=== PATIENT | female | born 1940 | race American Indian/Alaskan Native ===

== ENCOUNTER 2016-08-19 09:43 | Inpatient (IN) | payer MEDICARE ==
[2016-08-19] MEDS ORDERED: NACL 0.9% 1000 ML 1,000 ML IV ONE (11:12)
--- NOTE | 2016-08-19 11:26 | Emergency Department Report ---
ED Altered Mental Status HPI - General Chief Complaint: Altered Mental Status Stated Complaint: POSS UTI Time Seen by Provider: 08/19/16 11:11 Source: family Mode of arrival: Wheelchair Limitations: Physical Limitation - History of Present Illness Initial Comments: 76-year-old female presents to the emergency Department with family for evaluation of altered mental status. Per report, the patient has a history of recurrent urinary tract infections. For the past 2 weeks, the patient has exhibited decreased appetite and generalized weakness. Per family, these are the symptoms she has when she developed a urinary tract infection. For the past one week, the patient has become increasingly lethargic with decreased responsiveness. There are no other complaints. MD Complaint: altered mental status -: Gradual, week(s) (2) Severity: severe Consistency of Symptoms: constant - Related Data Home Medications Medication Instructions Recorded Confirmed Last Taken Atenolol [Tenormin] 50 mg PO DAILY 05/06/13 07/12/15 11/06/13 glipiZIDE [Glucotrol] 10 mg PO BID 05/06/13 07/12/15 11/06/13 Aspirin [Aspirin BABY CHEW TAB] 81 mg PO QDAY 07/12/15 07/12/15 Unknown Previous Rx's Medication Instructions Recorded Last Taken Type Hydralazine HCl [Apresoline TAB] 50 mg PO Q8HR #90 tab 07/25/15 Unknown Rx Lisinopril [Zestril TAB] 10 mg PO BID #60 tablet 07/25/15 Unknown Rx Allergies Allergy/AdvReac Type Severity Reaction Status Date / Time No Known Allergies Allergy Verified 11/11/14 12:57 ED Review of Systems ROS: Stated complaint: POSS UTI Other details as noted in HPI Comment: Unobtainable due to pts medical conditions ED Past Medical Hx - Past Medical History Previous Medical History?: Yes Hx Hypertension: Yes Hx CVA: Yes (dysarthria, right hemiparesis) Hx Heart Attack/AMI: No Hx Congestive Heart Failure: No Hx Diabetes: Yes (diet controlled) Hx Deep Vein Thrombosis: No Hx Pulmonary Embolism: No Hx Liver Disease: No Hx Renal Disease: No Hx Sickle Cell Disease: No Hx Arthritis: No Hx Seizures: No Hx Kidney Stones: No Hx Asthma: No Hx COPD: No Hx Tuberculosis: No Hx Dementia: No Hx HIV: No Additional medical history: Wheelchair and bedbound - Surgical History Hx Coronary Stent: No Hx Open Heart Surgery: No Hx Pacemaker: No Hx Internal Defibrillator: No Hx Cholecystectomy: Yes Hx Appendectomy: No Hx Breast Surgery: No Additional Surgical History: , hysterectomy - Family History Family history: no significant - Social History Smoking Status: Never Smoker Substance Use Type: None - Medications Home Medications: Home Medications Medication Instructions Recorded Confirmed Last Taken Type Atenolol [Tenormin] 50 mg PO DAILY 05/06/13 07/12/15 11/06/13 History glipiZIDE [Glucotrol] 10 mg PO BID 05/06/13 07/12/15 11/06/13 History Aspirin [Aspirin BABY CHEW TAB] 81 mg PO QDAY 07/12/15 07/12/15 Unknown History Hydralazine HCl [Apresoline TAB] 50 mg PO Q8HR #90 tab 07/25/15 Unknown Rx Lisinopril [Zestril TAB] 10 mg PO BID #60 tablet 07/25/15 Unknown Rx ED Physical Exam - General Limitations: Physical Limitation General appearance: lethargic - Head Head exam: Present: atraumatic, normocephalic - Eye Eye exam: Present: normal appearance, PERRL, EOMI - ENT ENT exam: Present: normal exam, normal orophraynx, mucous membranes moist - Neck Neck exam: Present: normal inspection, full ROM. Absent: tenderness - Respiratory Respiratory exam: Present: normal lung sounds bilaterally. Absent: respiratory distress - Cardiovascular Cardiovascular Exam: Present: regular rate, normal rhythm, normal heart sounds - GI/Abdominal GI/Abdominal exam: Present: soft, normal bowel sounds. Absent: distended, tenderness - Extremities Exam Extremities exam: Present: normal inspection, full ROM. Absent: tenderness - Back Exam Back exam: Present: normal inspection, full ROM. Absent: tenderness - Neurological Exam Neurological exam: Present: other (GCS 9 (E4, V1, M4). Right sided hemiparesis with right arm contracture, at baseline per family) - Skin Skin exam: Present: warm, dry ED Course Vital Signs 08/19/16 08/19/16 08/19/16 10:49 11:12 12:01 Temperature 98.1 F Pulse Rate 97 H 94 H Respiratory 14 Rate Blood Pressure 75/52 131/85 O2 Sat by Pulse 80 L 85 Oximetry 08/19/16 13:00 Temperature Pulse Rate 94 H Respiratory 9 L Rate Blood Pressure 135/114 O2 Sat by Pulse 62 L Oximetry - Reevaluation(s) Reevaluation #1: 08/19/16 13:55 Hamm catheter was placed by nursing staff with no urine return. Lab is unable to obtain blood and nursing unable to obtain IV access. A left femoral triple- lumen catheter was placed by me. See associated procedure note. Reevaluation #2: 08/19/16 14:32 Lab and imaging results reviewed and discussed with the family. Patient still has made no urine. IV fluids are being administered. I have spoken with the hospitalist, who will admit. - Central Line Placement Left Femoral Consent Obtained: written consent Time Out Performed: Yes Patient Placed on Monitor/Pulse Ox: Yes Prep: mask, gown, gloves Central Line Prep: Chlorhexidine scrub, sterile drapes applied Local Anesthesia Used: Lidocaine 1% Amount of Anesthesia Used (mls): 2 Ultrasound Used for Placement: Yes Central Line Lumen Inserted: triple Bloods Obtained for Lab: No Central Line Position: good blood return, all ports aspirated, flus, sutured in place with nyl Dressing Applied: Tegaderm Patient Tolerated Procedure: well Complications: none - Lab Data Result diagrams: 08/19/16 11:12 08/19/16 11:13 Lab Results 08/19/16 08/19/16 08/19/16 Range/Units 11:12 11:12 11:13 WBC 11.7 H (4.5-11.0) K/mm3 RBC 3.61 L (3.65-5.03) M/mm3 Hgb 11.3 (10.1-14.3) gm/dl Hct 34.9 (30.3-42.9) % MCV 97 (79-97) fl MCH 31 (28-32) pg MCHC 32 (30-34) % RDW 15.6 H (13.2-15.2) % Plt Count 238 (140-440) K/mm3 Lymph % (Auto) 13.4 (13.4-35.0) % [place] % (Auto) 7.7 H (0.0-7.3) % Eos % (Auto) 0.3 (0.0-4.3) % Baso % (Auto) 0.6 (0.0-1.8) % Lymph # 1.6 (1.2-5.4) K/mm3 [place] # 0.9 H (0.0-0.8) K/mm3 Eos # 0.0 (0.0-0.4) K/mm3 Baso # 0.1 (0.0-0.1) K/mm3 Seg Neutrophils % 78.0 H (40.0-70.0) % Seg Neutrophils # 9.2 H (1.8-7.7) K/mm3 Sodium 142 (137-145) mmol/L Potassium 4.2 (3.6-5.0) mmol/L Chloride 104.6 (98-107) mmol/L Carbon Dioxide 26 (22-30) mmol/L Anion Gap 16 mmol/L BUN 31 H (7-17) mg/dL Creatinine 1.4 H (0.7-1.2) mg/dL Estimated GFR 44 ml/min BUN/Creatinine Ratio 22.14 % Glucose 156 H (65-100) mg/dL POC Glucose 141 H (70-105) Lactic Acid (0.7-2.0) mmol/L Calcium 10.5 H (8.4-10.2) mg/dL Total Bilirubin 0.7 (0.1-1.2) mg/dL AST 57 H (5-40) units/L ALT 37 (7-56) units/L Alkaline Phosphatase 189 H (35-129) units/L Troponin T 0.214 H* (0.00-0.029) ng/mL Total Protein 7.1 (6.3-8.2) g/dL Albumin 2.8 L (3.9-5) g/dL Albumin/Globulin Ratio 0.7 % Triglycerides 95 (2-149) mg/dL Cholesterol 145 (50-199) mg/dL LDL Cholesterol Direct 90 (50-130) mg/dL HDL Cholesterol 36 L (40-59) mg/dL Cholesterol/HDL Ratio 4.02 % /30/16 Range/Units 13:25 WBC (4.5-11.0) K/mm3 RBC (3.65-5.03) M/mm3 Hgb (10.1-14.3) gm/dl Hct (30.3-42.9) % MCV (79-97) fl MCH (28-32) pg MCHC (30-34) % RDW (13.2-15.2) % Plt Count (140-440) K/mm3 Lymph % (Auto) (13.4-35.0) % [place] % (Auto) (0.0-7.3) % Eos % (Auto) (0.0-4.3) % Baso % (Auto) (0.0-1.8) % Lymph # (1.2-5.4) K/mm3 [place] # (0.0-0.8) K/mm3 Eos # (0.0-0.4) K/mm3 Baso # (0.0-0.1) K/mm3 Seg Neutrophils % (40.0-70.0) % Seg Neutrophils # (1.8-7.7) K/mm3 Sodium (137-145) mmol/L Potassium (3.6-5.0) mmol/L Chloride (98-107) mmol/L Carbon Dioxide (22-30) mmol/L Anion Gap mmol/L BUN (7-17) mg/dL Creatinine (0.7-1.2) mg/dL Estimated GFR ml/min BUN/Creatinine Ratio % Glucose (65-100) mg/dL POC Glucose (70-105) Lactic Acid 1.7 (0.7-2.0) mmol/L Calcium (8.4-10.2) mg/dL Total Bilirubin (0.1-1.2) mg/dL AST (5-40) units/L ALT (7-56) units/L Alkaline Phosphatase (35-129) units/L Troponin T (0.00-0.029) ng/mL Total Protein (6.3-8.2) g/dL Albumin (3.9-5) g/dL Albumin/Globulin Ratio % Triglycerides (2-149) mg/dL Cholesterol (50-199) mg/dL LDL Cholesterol Direct (50-130) mg/dL HDL Cholesterol (40-59) mg/dL Cholesterol/HDL Ratio % - EKG Data -: EKG Interpreted by Ms EKG shows normal: sinus rhythm, intervals, QRS complexes Rate: normal When compared to previous EKG there are: previous EKG unavailable Interpretation: nonspecific ST-T wave ana, other (left axis deviation) - Radiology Data Radiology results: report reviewed, image reviewed Chest x-ray shows no acute cardiopulmonary abnormality. - Differential Diagnosis sepsis, UTI, pneumonia, dehydration, electrolyte abnormality Critical care attestation.: If time is entered above; I have spent that time in minutes in the direct care of this critically ill patient, excluding procedure time. ED Disposition Clinical Impression: Acute renal failure due to tubular necrosis, Elevated troponin I level Disposition: OP ADMITTED IP TO THIS HOSP Is pt being admited?: Yes Condition: Stable Time of Disposition: 14:33
--- NOTE | 2016-08-19 13:01 | XRay Report ---
Portable chest: The cardiac contour isn't at least borderline in size and the aorta is tortuous. The lungs are clear. No infiltrate or nodule identified. There is a right subcapital humerus fracture of indeterminate age. Although there are technical differences the cardiopulmonary findings are unchanged from June 2015. Impression: No acute findings suspected.
--- NOTE | 2016-08-19 13:21 | Admit Criteria Form ---
Admission Criteria Documentation: MENTAL STATUS CHANGE Clinical Indications for Inpatient Care (Place 'X' for any and all applicable criteria): Ongoing inpatient care may be needed for ANY ONE of the following(1)(2)(3)(5)(6) : [ X]I. Suspected serious etiology (eg, medical disorder, ENTERTAINER & COMIC event) of mental status change [ ]II. Danger to self or others not manageable at lower level of care [ ]III. Grave disability (eg, inability to perform self care necessary at lower level of care) [ ]IV. Agitation or inappropriate behavior interfering with care for primary condition (eg, attempting to discontinue lines or drains prematurely, unable to cooperate with respiratory care) [ ]V. Delirium [A] [D][E] as described by ANY ONE of the following(26): [ ]a) Delirium due to alcohol or sedative [F] withdrawal [ ]b) Delirium of uncertain etiology that has not responded to appropriate empiric treatment [ ]c) Delirium that prevents performance of a life-sustaining function (eg, feeding or hydrating oneself) [ X]. General contraindications and/or Inappropriate clinical situations for Observational Care in patients with Mental Status Change, when ANY ONE of the following is required: [ X]a) Prediction of prolongation of LOS based on ANY ONE of the following may be considered as a contraindication for observational care 2, 3, 4, 5, 6, 7, 8, 9, 10, 11 [ X]i) Age > 65 yrs. [ ]ii) Patient arriving by ambulance [ ]iii) Patient with high acuity [ ]iv) Patient requiring vital sign monitoring [ ]v) Patient on IV medication [ ]b) Systolic blood pressures 180mmHg 3,12 [ ]c) Patient with altered mental status including delirium and other alteration of consciousness, (3) [ ]d) Patient whose discharge disposition will be to a longterm home or rehabilitation home should not be managed in Emergency Department Observation Unit. CMS rule requires 3 days hospital stay before such placement.3,13 [ ]e) Patient with failure to thrive due to broad array of etiologies 3,16,17 [ ]f) Inability to ambulate 3,14 Extended stay beyond goal length of stay for the primary condition may be needed until ALL of the following are present(3)(5): [ ]a) Underlying medical etiology of mental status change is absent, or has been established and adequately treated [ ]b) Danger to self or others is absent or manageable at lower level of care. [ ]c) Behavior crisis management, including physical or chemical restraints, is not required or available at lower level of car [ ]d) Substance or alcohol withdrawal is absent or manageable at lower level of care. [ ]e) Behavioral symptoms (eg, agitation, somnolence, inappropriate behavior) are absent, or are manageable at lower level of care. The original [facility] [employer] content created by [facility] has been revised. The portions of the content which have been revised are identified through the use of italic text or in bold, and [facility] has neither reviewed nor approved the modified material. All other unmodified content is copyright [facility]. Please see references footnoted in the original [facility] edition 2016 Admission Criteria Met: Yes
[2016-08-19 13:47] LABS: Basophils % (Auto) 0.6 % (0.0-1.8); Eosinophils % (Auto) 0.3 % (0.0-4.3); Hematocrit 34.9 % (30.3-42.9); Hemoglobin 11.3 gm/dl (10.1-14.3); Mean Corpuscular HGB Conc 32 % (30-34); Mean Corpuscular Hemoglobin 31 pg (28-32); Mean Corpuscular Volume 97 fl (79-97); Platelet Count 238 K/mm3 (140-440); Red Blood Count 3.61 M/mm3 (3.65-5.03); Red Cell Distribution Width 15.6 % (13.2-15.2); White Blood Count 11.7 K/mm3 (4.5-11.0)
[2016-08-19 14:11] LABS: Albumin 2.8 g/dL (3.9-5); Albumin/Globulin Ratio 0.7 %; BUN/Creatinine Ratio 22.14; Bilirubin,Total 0.7 mg/dL (0.1-1.2); Calcium 10.5 mg/dL (8.4-10.2); Chloride 104.6 mmol/L (98-107); Potassium 4.2 mmol/L (3.6-5.0); Total Protein 7.1 g/dL (6.3-8.2)
[2016-08-19] MEDS ORDERED: NACL 0.9% 1000 ML 1,000 ML IV SCH (15:00)
--- NOTE | 2016-08-19 17:32 | Event Note ---
Date: 08/19/16 See H/p in reports AMS Anuria Acute renal failure HTN T2dm Poor po intake IV fluids +Megace
[2016-08-19] MEDS ORDERED: DULCOLAX PR PRN (17:41)
[2016-08-19] MEDS ORDERED: DILAUDID IV PRN (17:41)
[2016-08-19] MEDS ORDERED: TYLENOL PO PRN (17:41)
[2016-08-19] MEDS ORDERED: MILK OF MAGNESIA PO PRN (17:41)
[2016-08-19] MEDS ORDERED: ZOFRAN IV PRN (17:41)
[2016-08-19] MEDS ORDERED: NON-FORMULARY (Omeprazole Magnesium [Prilosec Otc] 20 MG) PO SCH (17:45)
--- NOTE | 2016-08-19 17:53 | Consultation ---
History of Present Illness - Reason for Consult Consult date: 08/19/16 acute renal failure - History of Present Illness Patient is a 76 yo AAF with pmh significant for Hypertension and CVA s/p right sided hemiplegia who was brought into the ED by the family for evaluation of altered mental status. Unable to obtain any history from patient and information obtained from the family members at the bedside. Patient had about 2 episodes of urinary tract infection over the past 2 months. She was also treated for Acute Kidney Injury during the previous admission. For the past 2 weeks, the patient has exhibited decreased appetite, poor PO intake and confusion. Patient is also increasingly lethargic and not responding well. No h/o N, V, D, fever, cp, sob, leg swelling or rash. Past History Past Medical History: hypertension, stroke Social history: lives with family Medications and Allergies Allergies Allergy/AdvReac Type Severity Reaction Status Date / Time ceftriaxone sodium Allergy Unknown Verified 08/19/16 20:20 [From Rocephin] zolpidem tartrate Allergy Unknown Verified 08/19/16 20:20 [From Ambien] Home Medications Medication Instructions Recorded Confirmed Last Taken Type Aspirin [Aspirin BABY CHEW TAB] 81 mg PO QDAY 07/12/15 08/19/16 Unknown History Lisinopril [Zestril TAB] 10 mg PO BID #60 tablet 07/25/15 08/19/16 Unknown Rx AtorvaSTATin [Lipitor] 20 mg PO QHS 08/19/16 08/19/16 Unknown History Carvedilol [Coreg] 3.125 mg PO BID 08/19/16 08/19/16 Unknown History Furosemide [Lasix] 20 mg PO QDAY 08/19/16 08/19/16 Unknown History Omeprazole Magnesium [PriLOSEC Otc] 20 mg PO QDAY 08/19/16 08/19/16 Unknown History Active Meds: Active Medications Acetaminophen (Tylenol) 650 mg PO Q4H PRN PRN Reason: Pain MILD(1-3)/Fever >100.5/URBAN Bisacodyl (Dulcolax) 10 mg AL QDAY PRN PRN Reason: Constipation unrelieved by MOM Carvedilol (Coreg) 3.125 mg PO BID CHOCO Hydromorphone HCl (Dilaudid) 0.5 mg IV Q3H PRN PRN Reason: Pain , Severe (7-10) Sodium Chloride (Nacl 0.9% 1000 Ml) 1,000 mls @ 125 mls/hr IV DIRECT CHOCO Dextrose/Sodium Chloride (D5ns) 1,000 mls @ 100 mls/hr IV DIRECT CHOCO Magnesium Hydroxide (Milk Of Magnesia) 30 ml PO Q4H PRN PRN Reason: Constipation Megestrol Acetate (Megace) 40 mg PO BID HCOCO Miscellaneous Medication (Omeprazole Magnesium [Prilosec Otc]) 20 mg PO QDAY CHOCO Ondansetron HCl (Zofran) 4 mg IV Q8H PRN PRN Reason: N/V unrelieved by Reglan Review of Systems ROS unobtainable: due to mental status Exam - Vital Signs Vital signs: Vital Signs Temp Pulse BP Pulse Ox 98.1 F 97 H 75/52 80 L 08/19/16 10:49 08/19/16 10:49 08/19/16 10:49 08/19/16 10:49 - General Appearance General appearance: frail, other (no distress, not following any command) EENT: PERRL, mucous membranes dry Neck: Present: neck supple Heart: regular, S1S2, no murmurs Gastrointestinal: Present: normoactive bowel sounds. Absent: tenderness, distended, guarding Integumentary: no rash Neurologic: other (non-verbal) Musculoskeletal: Present: other (right UE contractures noted, atrophy of muscles noted) Psychiatric: other (not cooperative) Results - Lab Results 08/19/16 11:12 08/19/16 11:13 Most recent lab results Calcium 10.5 mg/dL (8.4-10.2) H 08/19/16 11:13 Assessment and Plan - Patient Problems (1) FRAN (acute kidney injury) Current Visit: Yes Status: Acute Plan to address problem: Likely hemodynamically mediated FRAN in the setting of volume depletion. Continue IV fluids. Monitor renal function. Urine studies pending. (2) Altered mental status Current Visit: Yes Status: Acute Qualifiers: Altered mental status type: disorientation Qualified Code(s): R41.0 - Disorientation, unspecified (3) Extracellular volume depletion Current Visit: Yes Status: Acute
[2016-08-19] MEDS ORDERED: PROTONIX PO ONE (19:00)
[2016-08-19] MEDS: COREG PO SCH (22:22)
[2016-08-19] MEDS: MEGACE PO SCH (22:23)
[2016-08-19] MEDS: D5NS 1,000 ML IV SCH (22:23)
--- NOTE | 2016-08-19 23:49 | History and Physical Report ---
CHIEF COMPLAINT: Altered sensorium. HISTORY OF PRESENT ILLNESS: A 76-year-old brought to the Emergency Department because of altered mental status. The patient has a history of recurrent urinary tract infections. The patient has decreased appetite and generalized weakness. Also, the patient is not passing any urine. The patient has been lethargic for the past one week. Increasing loss of appetite. Also, loss of fluid intake. No urine for the last 12 to 15 hours. Atenolol 50 mg p.o. daily, glipizide 10 mg twice a day, and aspirin 81 mg p.o. daily. PAST MEDICAL HISTORY: As mentioned, significant for hypertension, CVA with dysarthria and right hemiparesis. Diabetes. PAST SURGICAL HISTORY: and hysterectomy. SOCIAL HISTORY: Does not smoke. Lives with family. FAMILY HISTORY: Hypertension. CURRENT MEDICATIONS: Atenolol 50 mg daily, glipizide 10 mg twice a day, aspirin 81 mg p.o. daily, hydralazine 50 mg p.o. q.8 h., and Zestril 10 mg twice a day. REVIEW OF SYSTEMS: Significant for altered sensorium, confused, decreased p.o. intake, decreased fluid intake. No shortness of breath. No chest pain. No urine output for the past 12-15 hours. Otherwise, review of systems is essentially negative. PHYSICAL EXAMINATION: GENERAL: Elderly female, lying in bed. Family at bedside. VITAL SIGNS: Blood pressure is 155/98, repeat is 138/86; temperature is 98; pulse is 88; and respiratory rate is 11. HEENT: Unremarkable. Pupils are equal and reactive. NECK: Supple, no lymphadenopathy, no thyromegaly. LUNGS: Clear to auscultation and percussion. Good air entry. CARDIOVASCULAR: S1, S2 heard. No gallop, no murmur, no rub. Apical impulse in left fifth intercostal space and midclavicular line. ABDOMEN: Soft and benign. No hepatosplenomegaly. No guarding, no rigidity. Hernial orifices are normal. EXTREMITIES: Good pedal pulses. CENTRAL NERVOUS SYSTEM: Alert but not oriented. SKIN: Normal. LABORATORY DATA: White count is 11,700, H and H are 11.3 and 34.9, and platelet count is 238,000. Sodium is 142, potassium is 4.2, BUN and creatinine are 31 and 1.4. AST and ALT are 57 and 37. Troponin is 0.214. EKG shows normal sinus rhythm, normal intervals, normal QRS complexes. X-ray shows no acute cardiopulmonary abnormality. ASSESSMENT AND PLAN: 1. Acute renal failure secondary to decreased p.o. intake, decreased fluid intake. IV fluids for the time being. Nephrology consulted. Dr. Boland consulted. Anuria. IV fluids for the time being. 2. Hypertension. We will continue hydralazine, but we will hold lisinopril 3. Type 2 diabetes mellitus. We will hold the glipizide because of poor p.o. intake. We will do coverage. 4. Altered sensorium secondary to possible cerebrovascular accident versus infection. IV fluids and IV Rocephin for the time being. Stroke workup if necessary. 5. Deep venous thrombosis prophylaxis, Lovenox 40 mg subcutaneous daily. JOB# [id number] VSM/NTS
[2016-08-20] MEDS: PROTONIX PO SCH (09:19)
[2016-08-20] MEDS: COREG PO SCH ×2 (09:19→23:06)
[2016-08-20] MEDS: NOVOLOG SUB-Q SCH ×3 (09:20→16:30)
[2016-08-20] MEDS: MEGACE PO SCH ×2 (09:20→23:07)
[2016-08-20 10:46] LABS: Basophils % (Auto) 0.6 % (0.0-1.8); Eosinophils % (Auto) 0.5 % (0.0-4.3); Hematocrit 30.7 % (30.3-42.9); Mean Corpuscular HGB Conc 33 % (30-34); Mean Corpuscular Hemoglobin 32 pg (28-32); Mean Corpuscular Volume 97 fl (79-97); Platelet Count 181 K/mm3 (140-440); Red Blood Count 3.18 M/mm3 (3.65-5.03); Red Cell Distribution Width 15.5 % (13.2-15.2); White Blood Count 11.7 K/mm3 (4.5-11.0)
--- NOTE | 2016-08-20 11:04 | Progress Note ---
Assessment and Plan Assessment and plan: 1. NSTEMI continue Tele, cycle troponins, cardiology consult 2. FRAN- suspected vasomotor nephropathy -continue IVF, she is yet to make urine, will obtain CT scan to r/o obstructive uropathy 3. HTN urgency add hydralazine PRN 4. AMS likely metabolic encephalopathy, will continue with stroke w/o Obtain MRI brain , fup UA and CXR to r/o UTI 5. malnutrition obtain Dietitician consult History Interval history: continues to be altered, opens eyes but not obeying commands, not speaking Hospitalist Physical - Physical exam Narrative exam: General: Patient appears well in no distress HEENT: MMM, EOMI cardiac: S1-S2 heard lungs: clear to auscultation, abdomen: soft, nontender, nondistended bowel sounds positive extremities: no edema clubbing or cyanosis Skin: no rash or lesion Neuro: opens eyes, , non verbal, not obeying commands - Constitutional Vitals: Temp Pulse Resp BP Pulse Ox 99.9 F H 92 H 18 187/87 100 08/20/16 08:15 08/20/16 09:19 08/20/16 08:15 08/20/16 09:19 08/20/16 08:15 Results - Labs CBC & Chem 7: 08/20/16 10:30 08/20/16 10:30 Labs: Laboratory Last Values WBC 11.7 K/mm3 (4.5-11.0) H 08/20/16 10:30 RBC 3.18 M/mm3 (3.65-5.03) L 08/20/16 10:30 Hgb 10.0 gm/dl (10.1-14.3) L 08/20/16 10:30 Hct 30.7 % (30.3-42.9) 08/20/16 10:30 MCV 97 fl (79-97) 08/20/16 10:30 MCH 32 pg (28-32) 08/20/16 10:30 MCHC 33 % (30-34) 08/20/16 10:30 RDW 15.5 % (13.2-15.2) H 08/20/16 10:30 Plt Count 181 K/mm3 (140-440) 08/20/16 10:30 Lymph % (Auto) 10.2 % (13.4-35.0) L 08/20/16 10:30 [place] % (Auto) 9.1 % (0.0-7.3) H 08/20/16 10:30 Eos % (Auto) 0.5 % (0.0-4.3) 08/20/16 10:30 Baso % (Auto) 0.6 % (0.0-1.8) 08/20/16 10:30 Lymph # 1.2 K/mm3 (1.2-5.4) 08/20/16 10:30 [place] # 1.1 K/mm3 (0.0-0.8) H 08/20/16 10:30 Eos # 0.1 K/mm3 (0.0-0.4) 08/20/16 10:30 Baso # 0.1 K/mm3 (0.0-0.1) 08/20/16 10:30 Seg Neutrophils % 79.6 % (40.0-70.0) H 08/20/16 10:30 Seg Neutrophils # 9.3 K/mm3 (1.8-7.7) H 08/20/16 10:30 Sodium 142 mmol/L (137-145) 08/19/16 11:13 Potassium 4.2 mmol/L (3.6-5.0) 08/19/16 11:13 Chloride 104.6 mmol/L (98-107) 08/19/16 11:13 Carbon Dioxide 26 mmol/L (22-30) 08/19/16 11:13 Anion Gap 16 mmol/L 08/19/16 11:13 BUN 31 mg/dL (7-17) H 08/19/16 11:13 Creatinine 1.4 mg/dL (0.7-1.2) H 08/19/16 11:13 Estimated GFR 44 ml/min 08/19/16 11:13 BUN/Creatinine Ratio 22.14 % 08/19/16 11:13 Glucose 156 mg/dL (65-100) H 08/19/16 11:13 POC Glucose 141 (70-105) H 08/19/16 11:12 Lactic Acid 1.6 mmol/L (0.7-2.0) 08/19/16 14:00 Calcium 10.5 mg/dL (8.4-10.2) H 08/19/16 11:13 Total Bilirubin 0.7 mg/dL (0.1-1.2) 08/19/16 11:13 AST 57 units/L (5-40) H 08/19/16 11:13 ALT 37 units/L (7-56) 08/19/16 11:13 Alkaline Phosphatase 189 units/L (35-129) H 08/19/16 11:13 Troponin T 0.214 ng/mL (0.00-0.029) H* 08/19/16 11:13 Total Protein 7.1 g/dL (6.3-8.2) 08/19/16 11:13 Albumin 2.8 g/dL (3.9-5) L 08/19/16 11:13 Albumin/Globulin Ratio 0.7 % 08/19/16 11:13 Triglycerides 95 mg/dL (2-149) 08/19/16 11:13 Cholesterol 145 mg/dL (50-199) 08/19/16 11:13 LDL Cholesterol Direct 90 mg/dL (50-130) 08/19/16 11:13 HDL Cholesterol 36 mg/dL (40-59) L 08/19/16 11:13 Cholesterol/HDL Ratio 4.02 % 08/19/16 11:13 - Imaging and Cardiology Chest x-ray: image reviewed (no acute process)
[2016-08-20 11:13] LABS: Albumin 2.7 g/dL (3.9-5); Albumin/Globulin Ratio 0.7 %; Bilirubin,Total 0.8 mg/dL (0.1-1.2); Calcium 9.6 mg/dL (8.4-10.2); Chloride 109.7 mmol/L (98-107); Potassium 4.1 mmol/L (3.6-5.0); Total Protein 6.5 g/dL (6.3-8.2)
--- NOTE | 2016-08-20 12:12 | Progress Note ---
Assessment and Plan - Patient Problems (1) FRAN (acute kidney injury) Current Visit: Yes Status: Acute Plan to address problem: Likely hemodynamically mediated FRAN in the setting of volume depletion. Monitor renal function. Creatinine is about the same. Continue IV fluids. (2) Altered mental status Current Visit: Yes Status: Acute Qualifiers: Altered mental status type: disorientation Qualified Code(s): R41.0 - Disorientation, unspecified (3) Extracellular volume depletion Current Visit: Yes Status: Acute Subjective Date of service: 08/20/16 Interval history: No new symptoms. Objective - Vital Signs Vital signs: Vital Signs - 12hr 08/20/16 08/20/16 08/20/16 01:27 08:15 09:19 Temperature 99.9 F H Pulse Rate 92 H Pulse Rate [ 92 H Left Radial] Respiratory 22 18 Rate Blood Pressure 187/87 Blood Pressure 187/105 [Left Arm] O2 Sat by Pulse 97 100 Oximetry - General Appearance General appearance: well-developed, other (sleeping arousable, no distress) EENT: PERRL, mucous membranes moist, hearing intact Neck: supple Respiratory: Present: Clear to Ascultation Cardiology: regular, S1S2, no murmurs Gastrointestinal: normoactive bowel sounds, no tenderness, no distended, no guarding Integumentary: no rash, warm and dry Neurologic: other (not following any command) Musculoskeletal: other (no edema) - Lab 08/20/16 10:30 08/21/16 08:50 Most recent lab results Calcium 9.6 mg/dL (8.4-10.2) 08/20/16 10:30
--- NOTE | 2016-08-20 13:12 | Consultation ---
History of Present Illness Consult date: 08/20/16 Requesting physician: NISHANT SOLOMON Consult reason: elevated troponin History of present illness: This is a 76-year-old female who is bedbound with right-sided weakness since her stroke over 30 years ago who has a history of hypertension hyperlipidemia and diabetes history is obtained by the son was at the bedside who states that he has had decreased appetite and sleep since beginning of July patient is able to normally feet are cells and food is prepared by family members and is able to speak. Patient today is more nonverbal and as per the family patient was more verbal last month and has not had any history of chest pain or shortness of breath or arrhythmias or palpitations in the past. No melanoma no syncope no seizure-type activities Past History Past Medical History: diabetes, hypertension, hyperlipidemia, stroke (right- sided weakness and right arm contraction chronic) Past Surgical History: No surgical history Social history: no significant social history, lives with family Medications and Allergies Allergies Allergy/AdvReac Type Severity Reaction Status Date / Time ceftriaxone sodium Allergy Unknown Verified 08/19/16 20:20 [From Rocephin] zolpidem tartrate Allergy Unknown Verified 08/19/16 20:20 [From Ambien] Home Medications Medication Instructions Recorded Confirmed Last Taken Type Aspirin [Aspirin BABY CHEW TAB] 81 mg PO QDAY 07/12/15 08/19/16 Unknown History Lisinopril [Zestril TAB] 10 mg PO BID #60 tablet 07/25/15 08/19/16 Unknown Rx AtorvaSTATin [Lipitor] 20 mg PO QHS 08/19/16 08/19/16 Unknown History Carvedilol [Coreg] 3.125 mg PO BID 08/19/16 08/19/16 Unknown History Furosemide [Lasix] 20 mg PO QDAY 08/19/16 08/19/16 Unknown History Omeprazole Magnesium [PriLOSEC Otc] 20 mg PO QDAY 08/19/16 08/19/16 Unknown History Active Meds: Active Medications Acetaminophen (Tylenol) 650 mg PO Q4H PRN PRN Reason: Pain MILD(1-3)/Fever >100.5/URBAN Bisacodyl (Dulcolax) 10 mg LA QDAY PRN PRN Reason: Constipation unrelieved by MOM Carvedilol (Coreg) 3.125 mg PO BID CHOCO Last Admin: 08/20/16 09:19 Dose: 3.125 mg Hydralazine HCl (Apresoline) 10 mg IV Q4H PRN PRN Reason: BP >160/100 Hydromorphone HCl (Dilaudid) 0.5 mg IV Q3H PRN PRN Reason: Pain , Severe (7-10) Sodium Chloride (Nacl 0.9% 1000 Ml) 1,000 mls @ 125 mls/hr IV DIRECT CHOCO Dextrose/Sodium Chloride (D5ns) 1,000 mls @ 100 mls/hr IV DIRECT CHOCO Last Admin: 08/19/16 22:23 Dose: 100 mls/hr Insulin Aspart (Novolog) 0 units SUB-Q ACHS CHOCO PRN Reason: Protocol Last Admin: 08/20/16 12:59 Dose: Not Given Magnesium Hydroxide (Milk Of Magnesia) 30 ml PO Q4H PRN PRN Reason: Constipation Megestrol Acetate (Megace) 40 mg PO BID [facility] Last Admin: 08/20/16 09:20 Dose: 40 mg Ondansetron HCl (Zofran) 4 mg IV Q8H PRN PRN Reason: N/V unrelieved by Reglan Pantoprazole Sodium (Protonix) 20 mg PO QDAY [facility] Last Admin: 08/20/16 09:19 Dose: 20 mg Review of Systems All systems: negative (history from family) Physical Examination Vital Signs Temp Pulse BP Pulse Ox 98.1 F 97 H 75/52 80 L 08/19/16 10:49 08/19/16 10:49 08/19/16 10:49 08/19/16 10:49 General appearance: no acute distress HEENT: Positive: PERRL Neck: Positive: neck supple Cardiac: Positive: Reg Rate and Rhythm Lungs: Positive: clear to auscultation Neuro: Positive: Other (nonverbal right arm contraction) Abdomen: Positive: Soft Female genitourinary: deferred Skin: Positive: Clear Extremities: Present: normal. Absent: edema Results 08/20/16 10:30 08/20/16 10:30 Cardiac Enzymes 08/20/16 Range/Units 10:30 AST 49 H (5-40) units/L CBC 08/20/16 Range/Units 10:30 WBC 11.7 H (4.5-11.0) K/mm3 RBC 3.18 L (3.65-5.03) M/mm3 Hgb 10.0 L (10.1-14.3) gm/dl Hct 30.7 (30.3-42.9) % Plt Count 181 (140-440) K/mm3 Lymph # 1.2 (1.2-5.4) K/mm3 [place] # 1.1 H (0.0-0.8) K/mm3 Eos # 0.1 (0.0-0.4) K/mm3 Baso # 0.1 (0.0-0.1) K/mm3 Comprehensive Metabolic Panel 08/20/16 Range/Units 10:30 Sodium 144 (137-145) mmol/L Potassium 4.1 (3.6-5.0) mmol/L Chloride 109.7 H (98-107) mmol/L Carbon Dioxide 22 (22-30) mmol/L BUN 28 H (7-17) mg/dL Creatinine 1.4 H (0.7-1.2) mg/dL Glucose 140 H (65-100) mg/dL Calcium 9.6 (8.4-10.2) mg/dL AST 49 H (5-40) units/L ALT 31 (7-56) units/L Alkaline Phosphatase 154 H (35-129) units/L Total Protein 6.5 (6.3-8.2) g/dL Albumin 2.7 L (3.9-5) g/dL - Imaging and Cardiology Echo: pending EKG interpretations - Telemetry EKG Rhythm: Sinus Rhythm (normal sinus rhythm with nonspecific ST-T's) Assessment and Plan Altered mental status possible secondary to toxic encephalopathy Acute renal failure Non-ST elevation [place] type II History of stroke hypertension hyperlipidemia and diabetes Recommend echocardiogram for LV function agree with IV hydration for normalization of kidney function and will monitor patient's mental status and may consider ischemic workup if appropriate
--- NOTE | 2016-08-20 15:16 | Cat Scan Report ---
FINAL REPORT PROCEDURE: CT ABDOMEN PELVIS WO CON TECHNIQUE: Computerized axial tomography of the abdomen and pelvis was performed without intravenous contrast. This study is performed without intravascular contrast material and its sensitivity for abdominal and pelvic pathology, including neoplasms, inflammation, abscess, free fluid, thrombosis, arterial dissection and infarction, is reduced compared with a contrast enhanced study. HISTORY: FRAN, r/o urinary obstruction COMPARISON: 07/12/2015 FINDINGS: Visualized lower thorax: COPD with lower lung zone pleural thickening and minimal effusions with airspace process in the left lung base and lower lung zone atelectasis. Motion artifact. Small pericardial effusion. Liver: Heterogeneous appearing liver with low attenuated lesions seen primarily left lobe measuring up to 2.1 centimeters with smaller areas towards the left lobe medially and dome of liver. Spleen: Normal size and attenuation. Gallbladder and biliary system: Layering gallstones within the gallbladder. Pancreas: Normal. Adrenals: Normal. Kidneys: Persistent lobular kidneys with multiple low attenuated and medium attenuated lesions seen likely multi-cystic changes which can be confirmed by ultrasound. There is nonobstructive calculus seen within the right lower pole measuring 2 millimeters right mid kidney 1 millimeter right upper kidney 1 millimeter. Suspect severe chronic medical renal disease. Underlying solid renal mass or renal cell malignancy not excludable without IV contrast GI tract: No oral contrast. Suspect small hiatal hernia.. Moderate stool content with nonspecific bowel pattern. Normal caliber appendix. Fecal bulk in the rectal vault Lymph nodes and mesentery: Mild stranding in the presacral posterior pelvic area. Vasculature: Atherosclerosis. Bladder: Nondistended bladder with small amount of air within the bladder and also within the wall of the bladder consistent with emphysematous cystitis. Reproductive organs: Apparent surgical absence of the uterus. Hamm balloon catheter appears to be within the right upper vaginal fornix and not within the bladder lumen per se. Low attenuated right adnexal cyst 3.0 x 2.0 centimeters Peritoneum: No free fluid. Musculoskeletal structures: Severe lumbar spine lordosis. Scoliosis with diffuse degenerative changes evident. Diffuse osteoporosis. Severe degenerative changes of the hips mild sacroiliitis. IMPRESSION: Hamm balloon catheter is in the right upper vaginal fornix. Advise removal at this time as warranted Emphysematous cystitis of unknown etiology. Consider traumatic or infectious etiologies Left lung base pneumonia Details above Followup advised as warranted Results called to nurse China Pearson RN 3 p.m. 08/20/2016
[2016-08-20] MEDS: D5NS 1,000 ML IV SCH (19:39)
[2016-08-21] MEDS: NOVOLOG SUB-Q SCH ×4 (01:00→23:38)
[2016-08-21] MEDS: D5NS 1,000 ML IV SCH ×2 (07:18→15:53)
[2016-08-21 09:12] LABS: Calcium 9.2 mg/dL (8.4-10.2); Chloride 114.3 mmol/L (98-107); Potassium 3.9 mmol/L (3.6-5.0)
--- NOTE | 2016-08-21 09:30 | Progress Note ---
Assessment and Plan Assessment and plan: 1. NSTEMI - continue Tele - cardiology consult appreciated - We'll get echo and stress test - Continue hydration 2. FRAN- suspected vasomotor nephropathy - We'll continue his IV fluid - Check input and out 3. HTN urgency add hydralazine PRN 4. AMS - likely metabolic encephalopathy - will continue with stroke w/o Obtain MRI brain 5. malnutrition obtain Dietitician consult Disposition Plan: continued inpatient care History Interval history: Patient is non verbal and very weak. Hospitalist Physical - Physical exam Narrative exam: Not in cardiopulmonary distress. Vital signs as documented. Head exam is unremarkable. No scleral icterus . Neck is without jugular venous distension, thyromegaly, or carotid bruits. Lungs are clear to auscultation. Cardiac exam reveals regular rate and Rhythm. First and second heart sounds normal. No murmurs, rubs or gallops. Abdominal exam reveals normal bowel sounds, no masses, no organomegaly and no aortic enlargement. Extremities are nonedematous and both femoral and pedal pulses are normal. 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 - Constitutional Vitals: Temp Pulse Resp BP Pulse Ox 99.2 F 89 16 111/64 97 08/21/16 07:22 08/21/16 08:57 08/21/16 07:22 08/21/16 07:22 08/21/16 07:22 General appearance: Present: no acute distress Results - Labs CBC & Chem 7: 08/20/16 10:30 08/21/16 08:50 Labs: Laboratory Last Values WBC 11.7 K/mm3 (4.5-11.0) H 08/20/16 10:30 RBC 3.18 M/mm3 (3.65-5.03) L 08/20/16 10:30 Hgb 10.0 gm/dl (10.1-14.3) L 08/20/16 10:30 Hct 30.7 % (30.3-42.9) 08/20/16 10:30 MCV 97 fl (79-97) 08/20/16 10:30 MCH 32 pg (28-32) 08/20/16 10:30 MCHC 33 % (30-34) 08/20/16 10:30 RDW 15.5 % (13.2-15.2) H 08/20/16 10:30 Plt Count 181 K/mm3 (140-440) 08/20/16 10:30 Lymph % (Auto) 10.2 % (13.4-35.0) L 08/20/16 10:30 [place] % (Auto) 9.1 % (0.0-7.3) H 08/20/16 10:30 Eos % (Auto) 0.5 % (0.0-4.3) 08/20/16 10:30 Baso % (Auto) 0.6 % (0.0-1.8) 08/20/16 10:30 Lymph # 1.2 K/mm3 (1.2-5.4) 08/20/16 10:30 [place] # 1.1 K/mm3 (0.0-0.8) H 08/20/16 10:30 Eos # 0.1 K/mm3 (0.0-0.4) 08/20/16 10:30 Baso # 0.1 K/mm3 (0.0-0.1) 08/20/16 10:30 Seg Neutrophils % 79.6 % (40.0-70.0) H 08/20/16 10:30 Seg Neutrophils # 9.3 K/mm3 (1.8-7.7) H 08/20/16 10:30 Sodium 144 mmol/L (137-145) 08/20/16 10:30 Potassium 4.1 mmol/L (3.6-5.0) 08/20/16 10:30 Chloride 109.7 mmol/L (98-107) H 08/20/16 10:30 Carbon Dioxide 22 mmol/L (22-30) 08/20/16 10:30 Anion Gap 16 mmol/L 08/20/16 10:30 BUN 28 mg/dL (7-17) H 08/20/16 10:30 Creatinine 1.4 mg/dL (0.7-1.2) H 08/20/16 10:30 Estimated GFR 53 ml/min 08/21/16 08:50 BUN/Creatinine Ratio 20.00 % 08/21/16 08:50 Glucose 140 mg/dL (65-100) H 08/20/16 10:30 POC Glucose 197 (70-105) H 08/21/16 06:13 Hemoglobin A1c 5.9 % (4-6) 08/20/16 10:30 Lactic Acid 1.6 mmol/L (0.7-2.0) 08/19/16 14:00 Calcium 9.6 mg/dL (8.4-10.2) 08/20/16 10:30 Total Bilirubin 0.8 mg/dL (0.1-1.2) 08/20/16 10:30 AST 49 units/L (5-40) H 08/20/16 10:30 ALT 31 units/L (7-56) 08/20/16 10:30 Alkaline Phosphatase 154 units/L (35-129) H 08/20/16 10:30 Total Creatine Kinase 63 units/L (30-135) 08/20/16 10:30 Troponin T 0.202 ng/mL (0.00-0.029) H* 08/20/16 17:18 Total Protein 6.5 g/dL (6.3-8.2) 08/20/16 10:30 Albumin 2.7 g/dL (3.9-5) L 08/20/16 10:30 Albumin/Globulin Ratio 0.7 % 08/20/16 10:30 Triglycerides 95 mg/dL (2-149) 08/19/16 11:13 Cholesterol 145 mg/dL (50-199) 08/19/16 11:13 LDL Cholesterol Direct 90 mg/dL (50-130) 08/19/16 11:13 HDL Cholesterol 36 mg/dL (40-59) L 08/19/16 11:13 Cholesterol/HDL Ratio 4.02 % 08/19/16 11:13
--- NOTE | 2016-08-21 10:05 | Echocardiography Report ---
Transthoracic Echocardiogram Indication: NSTEMI BP: 187/87 HR: 102 Conclusions *The study is technically limited due to poor acoustic windows. *Global left ventricular systolic function is at the lower limits of normal. *The estimated ejection fraction is 50-55%. *The right ventricular global systolic function is normal. *There is no evidence of aortic regurgitation. *There is trace of mitral regurgitation. *There is trace tricuspid regurgitation. *The right ventricular systolic pressure is calculated at 26 mmHg. *There is a moderate pleural effusion. *There is no pericardial effusion. Findings Procedure Info: The study quality is poor. The study is technically limited due to poor acoustic windows. The study is technically limited due to patient body habitus. The study was technically limited due to the patient's inability to lay in the left lateral decubitus position. Left Ventricle: The left ventricular chamber size is normal. There is no left ventricular hypertrophy. Global left ventricular systolic function is at the lower limits of normal. The estimated ejection fraction is 50-55%. Left Atrium: The left atrial chamber size is normal. Right Ventricle: The right ventricle is not well visualized. The right ventricular global systolic function is normal. No pacemaker wire is visualized in the right ventricle. Right Atrium: The right atrial cavity size is normal. No pacemaker wire is visualized in the right atrium. Aortic Valve: The aortic valve is trileaflet. There is no evidence of aortic valve thickening. There is no evidence of aortic regurgitation. There is no evidence of aortic stenosis. The peak instantaneous gradient of the aortic valve is 8 mmHg. The aortic valve area, by peak velocities, is calculated at 1.61 cm2. Mitral Valve: The mitral valve is not well visualized. There is trace of mitral regurgitation. There is no evidence of mitral stenosis. Tricuspid Valve: There is trace tricuspid regurgitation. The right ventricular systolic pressure is calculated at 26 mmHg. The right ventricular systolic pressure is estimated to be 25-30 mmHg. No pulmonary hypertension is noted. There is no tricuspid stenosis. Pulmonic Valve: The pulmonic valve is not well visualized. There is no evidence of pulmonic regurgitation. There is no pulmonic stenosis. Pericardium: There is no pericardial effusion. There is a moderate pleural effusion. Aorta: The aorta appears normal. Pulmonary Artery: The main pulmonary artery is not well visualized. Measurements Chambers 2D Name Value Normal Range IVSd (2D) 1.31 cm (0.6 - 1.1) LVPWd 0.94 cm - LVPWd (2D) 0.94 cm (0.6 - 1.1) IVS:LVPW ratio (2D) 1.39 ratio - LVIDd 2.9 cm - LVIDs 2.3 cm - LVIDd (2D) 2.9 cm (3.7 - 5.6) LVIDs (2D) 2.3 cm (2 - 3.8) LV FS (Teichholz) (2D) 20.7 % - LV FS (cube) (2D) 20.7 % - LV EF (2D) 43 % - EF Teichholz (2D) 43.8 % - LA dimension 2.4 cm - Ao root diameter (2D) 3.2 cm (2 - 3.7) LA dimension (AP) 2D 2.4 cm (1.9 - 4) LA:Ao ratio (2D) 0.75 ratio - Volumes/Mass Name Value Normal Range LA ESV SP 4CH (MOD) 28 ml - Diastolic/Systolic Function Name Value Normal Range MV E-wave Vmax 0.62 m/sec - MV deceleration time 261 msec - MV A-wave Vmax 1.05 m/sec - MV E:A ratio 0.6 ratio - LV septal e' Vmax 0.08 m/sec - LV lateral e' Vmax 0.08 m/sec - LV E:e' septal ratio 7.6 ratio - LV E:e' lateral ratio 8.1 ratio - Aortic Valve Name Value Normal Range AV Vmax 1.42 m/sec - AV peak gradient 8 mmHg - LVOT diameter 1.5 cm - LVOT Vmax 1.29 m/sec - LVOT peak gradient 7 mmHg - CYRIL (continuity Vmax) 1.61 cm2 - Tricuspid Valve Name Value Normal Range TR Vmax 2.38 m/sec - TR peak gradient 23 mmHg - RAP 3 mmHg - RVSP 26 mmHg - Pulmonic Valve/Qp:Qs Name Value Normal Range PV Vmax 1.2 m/sec - PV peak gradient 6 mmHg - MN end-diastolic Vmax 1.03 m/sec - PV acceleration time 99 msec -
[2016-08-21] MEDS: COREG PO SCH ×2 (10:59→23:39)
[2016-08-21] MEDS: PROTONIX PO SCH (11:00)
[2016-08-21] MEDS: MEGACE PO SCH ×2 (11:00→23:40)
--- NOTE | 2016-08-21 11:04 | Progress Note ---
Assessment and Plan Altered mental status possible secondary to toxic encephalopathy - improving to baseline Acute renal failure Non-ST elevation [place] type II History of stroke hypertension hyperlipidemia and diabetes Recommend renal function has improved patient is more awake alert discussing with family in view of the elevated echocardiogram with suggest repeat with Definity in a.m. and rule out ischemic burden in view of abnormal troponin Subjective Date of service: 08/21/16 Principal diagnosis: abnormal trop Interval history: pt is awake not verbal more alert Objective Vital Signs Temp Pulse Pulse Resp BP BP Pulse Ox 08/21/16 10:59 89 08/21/16 08:57 89 08/21/16 07:22 99.2 F 89 16 111/64 97 08/21/16 05:17 98.6 F 92 H 18 113/73 96 08/21/16 00:29 98.7 F 78 20 132/78 100 08/20/16 23:06 100 H 128/80 08/20/16 22:00 18 98 08/20/16 18:39 20 08/20/16 17:40 99.9 F H 101 H 18 120/78 99 - Physical Examination General: No Apparent Distress HEENT: Positive: PERRL Neck: Positive: neck supple Cardiac: Positive: Reg Rate and Rhythm Lungs: Positive: clear to auscultation Neuro: Positive: Other (awake non verbal) Abdomen: Positive: Soft Skin: Positive: Clear Extremities: Present: normal. Absent: edema - Labs and Meds Cardiac Enzymes 08/20/16 Range/Units 10:30 AST 49 H (5-40) units/L Comprehensive Metabolic Panel 08/20/16 08/21/16 Range/Units 10:30 08:50 Sodium 144 147 H (137-145) mmol/L Potassium 4.1 3.9 (3.6-5.0) mmol/L Chloride 109.7 H 114.3 H (98-107) mmol/L Carbon Dioxide 22 23 (22-30) mmol/L BUN 28 H 24 H (7-17) mg/dL Creatinine 1.4 H 1.2 (0.7-1.2) mg/dL Glucose 140 H 142 H (65-100) mg/dL Calcium 9.6 9.2 (8.4-10.2) mg/dL AST 49 H (5-40) units/L ALT 31 (7-56) units/L Alkaline Phosphatase 154 H (35-129) units/L Total Protein 6.5 (6.3-8.2) g/dL Albumin 2.7 L (3.9-5) g/dL - Imaging and Cardiology Echo: report reviewed (tds ef 50% no signficant regurtitations) - Telemetry EKG Rhythm: Sinus Rhythm (no vtach or afib noted)
--- NOTE | 2016-08-21 12:48 | Progress Note ---
Assessment and Plan - Patient Problems (1) FRAN (acute kidney injury) Current Visit: Yes Status: Acute Plan to address problem: Likely hemodynamically mediated FRAN in the setting of volume depletion. Monitor renal function. Creatinine is improving. Continue IV fluids. (2) Non-ST elevation (NSTEMI) myocardial infarction Current Visit: Yes Status: Acute Plan to address problem: Cards following. (3) Altered mental status Current Visit: Yes Status: Acute Qualifiers: Altered mental status type: disorientation Qualified Code(s): R41.0 - Disorientation, unspecified Plan to address problem: Improving. (4) Extracellular volume depletion Current Visit: Yes Status: Acute Plan to address problem: IV fluids. Subjective Date of service: 08/21/16 Principal diagnosis: abnormal trop Interval history: No new symptoms. Objective - Vital Signs Vital signs: Vital Signs - 12hr 08/21/16 08/21/16 08/21/16 05:17 07:22 08:57 Temperature 98.6 F 99.2 F Pulse Rate Pulse Rate [ 92 H 89 89 Left Radial] Respiratory 18 16 Rate Blood Pressure 113/73 111/64 [Left Arm] O2 Sat by Pulse 96 97 Oximetry 08/21/16 10:59 Temperature Pulse Rate 89 Pulse Rate [ Left Radial] Respiratory Rate Blood Pressure [Left Arm] O2 Sat by Pulse Oximetry - General Appearance General appearance: well-developed, other (no distress, alert) EENT: PERRL, mucous membranes moist, hearing intact Neck: supple Respiratory: Present: Clear to Ascultation Cardiology: regular, S1S2, no murmurs Gastrointestinal: normoactive bowel sounds, no tenderness, no distended, no guarding Integumentary: no rash, warm and dry Neurologic: other (non-verbal, not following any command, more alert) Musculoskeletal: other (no edema) - Lab 08/20/16 10:30 08/21/16 08:50 Most recent lab results Calcium 9.2 mg/dL (8.4-10.2) 08/21/16 08:50
[2016-08-21] MEDS: APRESOLINE IV PRN (21:08)
[2016-08-22] MEDS: D5NS 1,000 ML IV SCH (05:55)
[2016-08-22 06:36] LABS: Blood Urea Nitrogen 19 mg/dL (7-17); Calcium 9.2 mg/dL (8.4-10.2); Carbon Dioxide 21 mmol/L (22-30); Glucose 118 mg/dL (65-100); Magnesium 1.4 mg/dL (1.7-2.3); Phosphorous 1.6 mg/dL (2.5-4.5)
[2016-08-22 06:37] LABS: Chloride 114.2 mmol/L (98-107); Potassium 4.1 mmol/L (3.6-5.0); Sodium 144 mmol/L (137-145)
[2016-08-22 06:39] LABS: Anion Gap 13 mmol/L
[2016-08-22] MEDS: APRESOLINE IV PRN (06:49)
[2016-08-22] MEDS: NOVOLOG SUB-Q SCH ×4 (08:04→16:49)
[2016-08-22] MEDS ORDERED: LEXISCAN IV ONE (08:06)
--- NOTE | 2016-08-22 08:19 | Progress Note ---
Assessment and Plan - Patient Problems (1) FRAN (acute kidney injury) Current Visit: Yes Status: Acute Plan to address problem: Hemodynamically mediated FRAN. Renal function has improved. F/u with me next week. (2) Non-ST elevation (NSTEMI) myocardial infarction Current Visit: Yes Status: Acute (3) Altered mental status Current Visit: Yes Status: Acute Qualifiers: Altered mental status type: disorientation Qualified Code(s): R41.0 - Disorientation, unspecified Plan to address problem: MS is better. (4) Extracellular volume depletion Current Visit: Yes Status: Acute Plan to address problem: Treated with IV fluids. Subjective Date of service: 08/22/16 Principal diagnosis: abnormal trop Interval history: No new complaint. Objective - Vital Signs Vital signs: Vital Signs - 12hr 08/21/16 08/21/16 08/21/16 20:44 20:45 21:08 Temperature 99.8 F H Pulse Rate 88 Pulse Rate [ 88 Left Radial] Respiratory 20 Rate Blood Pressure 180/116 Blood Pressure 180/116 [Left Arm] O2 Sat by Pulse 98 95 Oximetry 08/21/16 08/22/16 08/22/16 23:39 00:00 05:05 Temperature 98.9 F 98.6 F Pulse Rate 93 H Pulse Rate [ 82 87 Left Radial] Respiratory 20 20 Rate Blood Pressure 155/89 Blood Pressure 155/100 185/117 [Left Arm] O2 Sat by Pulse 97 98 Oximetry 08/22/16 08/22/16 08/22/16 06:42 06:49 07:45 Temperature 99.1 F Pulse Rate 84 Pulse Rate [ 84 91 H Left Radial] Respiratory 18 Rate Blood Pressure 191/99 Blood Pressure 191/99 134/75 [Left Arm] O2 Sat by Pulse 96 Oximetry - General Appearance General appearance: well-developed, frail, other (no distress) EENT: PERRL, mucous membranes moist Neck: supple Respiratory: Present: Clear to Ascultation Cardiology: regular, S1S2, no murmurs Gastrointestinal: normoactive bowel sounds, no tenderness, no distended, no guarding Integumentary: no rash, warm and dry Neurologic: confused, disoriented, other (not following any command) Musculoskeletal: other (no edema) - Lab 08/20/16 10:30 08/22/16 05:38 Most recent lab results Calcium 9.2 mg/dL (8.4-10.2) 08/22/16 05:38 Phosphorus 1.6 mg/dL (2.5-4.5) L 08/22/16 05:38 Magnesium 1.4 mg/dL (1.7-2.3) L 08/22/16 05:38
--- NOTE | 2016-08-22 09:26 | Progress Note ---
Hospitalist Physical - Constitutional Vitals: Temp Pulse Resp BP Pulse Ox 99.1 F 91 H 18 134/75 96 08/22/16 07:45 08/22/16 07:45 08/22/16 07:45 08/22/16 07:45 08/22/16 07:45 General appearance: Present: no acute distress Results - Labs CBC & Chem 7: 08/20/16 10:30 08/22/16 05:38 Labs: Laboratory Last Values WBC 11.7 K/mm3 (4.5-11.0) H 08/20/16 10:30 RBC 3.18 M/mm3 (3.65-5.03) L 08/20/16 10:30 Hgb 10.0 gm/dl (10.1-14.3) L 08/20/16 10:30 Hct 30.7 % (30.3-42.9) 08/20/16 10:30 MCV 97 fl (79-97) 08/20/16 10:30 MCH 32 pg (28-32) 08/20/16 10:30 MCHC 33 % (30-34) 08/20/16 10:30 RDW 15.5 % (13.2-15.2) H 08/20/16 10:30 Plt Count 181 K/mm3 (140-440) 08/20/16 10:30 Lymph % (Auto) 10.2 % (13.4-35.0) L 08/20/16 10:30 [place] % (Auto) 9.1 % (0.0-7.3) H 08/20/16 10:30 Eos % (Auto) 0.5 % (0.0-4.3) 08/20/16 10:30 Baso % (Auto) 0.6 % (0.0-1.8) 08/20/16 10:30 Lymph # 1.2 K/mm3 (1.2-5.4) 08/20/16 10:30 [place] # 1.1 K/mm3 (0.0-0.8) H 08/20/16 10:30 Eos # 0.1 K/mm3 (0.0-0.4) 08/20/16 10:30 Baso # 0.1 K/mm3 (0.0-0.1) 08/20/16 10:30 Seg Neutrophils % 79.6 % (40.0-70.0) H 08/20/16 10:30 Seg Neutrophils # 9.3 K/mm3 (1.8-7.7) H 08/20/16 10:30 Sodium 144 mmol/L (137-145) 08/22/16 05:38 Potassium 4.1 mmol/L (3.6-5.0) 08/22/16 05:38 Chloride 114.2 mmol/L (98-107) H 08/22/16 05:38 Carbon Dioxide 21 mmol/L (22-30) L 08/22/16 05:38 Anion Gap 13 mmol/L 08/22/16 05:38 BUN 19 mg/dL (7-17) H 08/22/16 05:38 Creatinine 1.0 mg/dL (0.7-1.2) 08/22/16 05:38 Estimated GFR > 60 ml/min 08/22/16 05:38 BUN/Creatinine Ratio 19.00 % 08/22/16 05:38 Glucose 118 mg/dL (65-100) H 08/22/16 05:38 POC Glucose 131 (70-105) H 08/22/16 06:21 Hemoglobin A1c 5.9 % (4-6) 08/20/16 10:30 Lactic Acid 1.6 mmol/L (0.7-2.0) 08/19/16 14:00 Calcium 9.2 mg/dL (8.4-10.2) 08/22/16 05:38 Phosphorus 1.6 mg/dL (2.5-4.5) L 08/22/16 05:38 Magnesium 1.4 mg/dL (1.7-2.3) L 08/22/16 05:38 Total Bilirubin 0.8 mg/dL (0.1-1.2) 08/20/16 10:30 AST 49 units/L (5-40) H 08/20/16 10:30 ALT 31 units/L (7-56) 08/20/16 10:30 Alkaline Phosphatase 154 units/L (35-129) H 08/20/16 10:30 Total Creatine Kinase 63 units/L (30-135) 08/20/16 10:30 Troponin T 0.202 ng/mL (0.00-0.029) H* 08/20/16 17:18 Total Protein 6.5 g/dL (6.3-8.2) 08/20/16 10:30 Albumin 2.7 g/dL (3.9-5) L 08/20/16 10:30 Albumin/Globulin Ratio 0.7 % 08/20/16 10:30 Triglycerides 95 mg/dL (2-149) 08/19/16 11:13 Cholesterol 145 mg/dL (50-199) 08/19/16 11:13 LDL Cholesterol Direct 90 mg/dL (50-130) 08/19/16 11:13 HDL Cholesterol 36 mg/dL (40-59) L 08/19/16 11:13 Cholesterol/HDL Ratio 4.02 % 08/19/16 11:13
--- NOTE | 2016-08-22 11:22 | Progress Note ---
Assessment and Plan Altered mental status possible secondary to toxic encephalopathy - to baseline Acute renal failure Non-ST elevation SC type II History of stroke hypertension hyperlipidemia and diabetes Recommend patient stress that shows normally function patient's mental status returned to baseline per the family discussed with patient's extended family patient is stable from a cardiovascular point of view for discharge repeat echo with Definity shows normal function Subjective Date of service: 08/22/16 Principal diagnosis: abnormal trop Interval history: pt awake and alert Objective Vital Signs Temp Pulse Pulse Resp BP BP Pulse Ox 08/22/16 09:43 102 H 75/50 08/22/16 09:42 104 H 67/46 08/22/16 09:41 104 H 75/49 08/22/16 09:40 103 H 71/43 08/22/16 09:39 102 H 83/49 08/22/16 09:38 83 153/97 08/22/16 07:45 99.1 F 91 H 18 134/75 96 08/22/16 06:49 84 191/99 08/22/16 06:42 84 191/99 08/22/16 05:05 98.6 F 87 20 185/117 98 08/22/16 00:00 98.9 F 82 20 155/100 97 08/21/16 23:39 93 H 155/89 08/21/16 21:08 88 180/116 08/21/16 20:45 95 08/21/16 20:44 99.8 F H 88 20 180/116 98 08/21/16 15:08 98.5 F 85 16 132/68 96 - Physical Examination General: No Apparent Distress HEENT: Positive: PERRL Neck: Positive: neck supple Cardiac: Positive: Reg Rate and Rhythm Lungs: Positive: clear to auscultation Neuro: Positive: Other (awake non verbal) Abdomen: Positive: Soft Skin: Positive: Clear Extremities: Present: normal. Absent: edema - Labs and Meds Comprehensive Metabolic Panel 08/22/16 Range/Units 05:38 Sodium 144 (137-145) mmol/L Potassium 4.1 (3.6-5.0) mmol/L Chloride 114.2 H (98-107) mmol/L Carbon Dioxide 21 L (22-30) mmol/L BUN 19 H (7-17) mg/dL Creatinine 1.0 (0.7-1.2) mg/dL Glucose 118 H (65-100) mg/dL Calcium 9.2 (8.4-10.2) mg/dL - Imaging and Cardiology Pharmacologic stress test: report reviewed (normal perfusion and no ischemia) Echo: report reviewed (tds ef 50% no signficant regurtitations with definity normal lv function) - Telemetry EKG Rhythm: Sinus Rhythm
[2016-08-22] MEDS ORDERED: MAGNESIUM SULFATE 3 GM in NACL 0.9% 100 ML IV ONE (11:30)
[2016-08-22] MEDS: COREG PO SCH (11:44)
--- NOTE | 2016-08-22 11:58 | Treadmill Report ---
NUCLEAR STRESS TEST REASON FOR STUDY: For abnormal troponins. READING PHYSICIAN: Mamadou Santillan MD IMAGING PROTOCOL: The patient received 10 mCi of Technetium 99m Tetrofosmin for resting image and 28 mCi of Technetium 99m Tetrofosmin for stress imaging. The imaging for the whole procedure was completed 30-90 minutes following the initial injection of Technetium 99m tetrofosmin. The SPECT imaging in the 180 degree arc was performed in the right anterior oblique projection. Computerized reconstruction of the images was performed for analysis. IMAGING RESULTS: Normal cavity size from stress to rest. Normal distribution of radionuclide in the anterior, inferior, septal, and apical regions. Gated SPECT, EF greater than 65% with no wall motion abnormality. The patient infused Lexiscan with no EKG changes. SUMMARY: 1. Negative Lexiscan EKG. 2. Normal rest and stress myocardial perfusion scan. No significant stress ischemia. No wall motion abnormality. Gated SPECT, EF greater than 65%. [facility]# [id number] YANDY/TOMASA
[2016-08-22] MEDS ORDERED: KPHOS 45 MMOL in NACL 0.9% 500 ML 500 ML IV ONE (12:00)
[2016-08-22] MEDS: MEGACE PO SCH (12:18)
[2016-08-22] MEDS: PROTONIX PO SCH (12:18)
--- NOTE | 2016-08-22 12:45 | Discharge Summary ---
Providers - Providers Date of Admission: 08/19/16 14:34 Date of discharge: 08/22/16 Attending physician: STACY LEE 08/19/16 17:41 Consult to Physician [CONS] Routine Consulting Provider: TAMMY ALEGRIA Reason For Exam: ARF Place consult to:: DR. ALEGRIA Notified:: ANSWERING SERVICE Phone number called:: [phone] Was contact made?: Yes If yes, spoke with:: ALVIN Time called:: 09:46 Comment:: CONSULT COMPLETED 08/20/16 10:57 Consult to Physician [CONS] Routine Consulting Provider: BHAVIK BOLAND Reason For Exam: NSTEMI Place consult to:: Notified:: ANSWERING SERVICE Phone number called:: [phone] Was contact made?: Yes Time called:: 11:48 Comment:: COMPLETED Primary care physician: RILEY EARL Hospitalization Condition: Stable Disposition: DC/TX HOME UNDER HOME HEALTH Time spent for discharge: 35 min Core Measure Documentation - Palliative Care Palliative Care/ Comfort Measures: Not Applicable - Core Measures Any of the following diagnoses?: none Exam - Constitutional Vitals: Temp Pulse Resp BP Pulse Ox 97.3 F L 105 H 20 138/77 100 08/22/16 11:00 08/22/16 12:00 08/22/16 12:00 08/22/16 12:00 08/22/16 12:00 General appearance: Present: no acute distress, well-nourished - EENT Eyes: Present: PERRL, EOM intact - Neck Neck: Present: supple, normal ROM - Respiratory Respiratory effort: normal Respiratory: negative: rales, rhonchi, wheezing - Cardiovascular Rhythm: regular Heart Sounds: Present: S1 & S2 - Extremities Extremities: no ischemia, pulses intact, pulses symmetrical Peripheral Pulses: within normal limits - Abdominal General gastrointestinal: Present: soft, non-tender, non-distended, normal bowel sounds - Integumentary Integumentary: Present: clear, warm - Musculoskeletal Musculoskeletal: strength equal bilaterally, generalized weakness - Psychiatric Psychiatric: appropriate mood/affect, other (confused) - Neurologic Neurologic: CNII-XII intact, moves all extremities Plan Activity: advance as tolerated, fall precautions Diet: low salt, other (mechanical soft diet) Follow up with: RILEY EARL MD [Primary Care Provider] - 3-5 Days BHAVIK BOLAND MD [Staff Physician] - 7 Days TAMMY ALEGRIA MD [Staff Physician] - 7 Days Prescriptions: Magnesium Oxide [Mag-Ox] 400 mg PO QDAY #7 tablet Megestrol [Megace] 40 mg PO BID #30 tablet Pot Phosphate/Na Phosphate [Phos-Nak] 1 each PO BID #14 powd.pack
[2016-08-22 16:06] VITALS: BP 175/98
== END 2016-08-22 19:00 | disposition home health service (06) | DRG 280 ==
LOC: ED 09:43 → 3A 14:34
PROVIDERS: ADMIT Internal Medicine; ATTEND Internal Medicine
DX: I21.4 Non-ST elevation (NSTEMI) myocardial infarction (principal); G92 Toxic encephalopathy; N17.0 Acute kidney failure with tubular necrosis; E46 Unspecified protein-calorie malnutrition; I69.951 Hemiplegia and hemiparesis following unspecified cerebrovascular disease affecting right dominant side; R79.89 Other specified abnormal findings of blood chemistry; E11.8 Type 2 diabetes mellitus with unspecified complications; E86.9 Volume depletion, unspecified; I16.0 Hypertensive urgency; E78.5 Hyperlipidemia, unspecified; Z68.27 Body mass index [BMI] 27.0-27.9, adult; Z79.82 Long term (current) use of aspirin; Z79.899 Other long term (current) drug therapy; Z86.73 Personal history of transient ischemic attack (TIA), and cerebral infarction without residual deficits; Z90.49 Acquired absence of other specified parts of digestive tract; Z90.710 Acquired absence of both cervix and uterus; Z88.1 Allergy status to other antibiotic agents; Z88.8 Allergy status to other drugs, medicaments and biological substances; Z82.49 Family history of ischemic heart disease and other diseases of the circulatory system; Z74.01 Bed confinement status
CPT/HCPCS: 36415; 51702; 71010; 74176; 78452; 80048; 80053; 80061; 82140; 82550; 82962; 83036; 83735; 84100; 84484; 85025; 87040; 93005; 93010; 93017; 93306; 93880; A9502; J0360; J1170; J1815; J2785; J3475; J7030; J7040; J7042

== ENCOUNTER 2016-10-12 19:00 | Inpatient (IN) | payer MEDICARE ==
[2016-10-12] MEDS ORDERED: NACL 0.9% 1000 ML 1,000 ML IV ONE ×2 (19:08→21:06)
--- NOTE | 2016-10-12 19:29 | Emergency Department Report ---
ED Altered Mental Status HPI - General Chief Complaint: Neuro Symptoms/Deficit Stated Complaint: UNRESPONSIVE Time Seen by Provider: 10/12/16 19:07 Source: family, EMS Mode of arrival: Stretcher Limitations: Altered Mental Status, Physical Limitation - History of Present Illness Initial Comments: 76-year-old female presents to the emergency department via EMS for evaluation of altered mental status. Per report, over the past week the patient has become less and less responsive. She has begun mumbling words. Today the patient has become unresponsive. Patient has a history of a stroke with residual right-sided hemiparesis. She is not ambulatory. Further history unable to be obtained from the patient due to her altered mental status. MD Complaint: altered mental status -: Gradual, week(s) (1) Severity: severe Consistency of Symptoms: getting worse Treatments Prior to Arrival: oxygen - Related Data Home Medications Medication Instructions Recorded Confirmed Last Taken Aspirin [Aspirin BABY CHEW TAB] 81 mg PO QDAY 07/12/15 08/19/16 Unknown AtorvaSTATin [Lipitor] 20 mg PO QHS 08/19/16 08/19/16 Unknown Omeprazole Magnesium [PriLOSEC Otc] 20 mg PO QDAY 08/19/16 08/19/16 Unknown Previous Rx's Medication Instructions Recorded Last Taken Type Carvedilol [Coreg] 6.25 mg PO BID #60 tablet 09/03/16 Unknown Rx Levofloxacin 250Mg/50Ml [Levaquin 250 mg IV Q24H #3 piggyback 09/03/16 Unknown Rx IV PREMIX] Megestrol Acetate [Megace] 400 mg PO DAILY 30 Days 09/03/16 Unknown Rx Allergies Allergy/AdvReac Type Severity Reaction Status Date / Time ceftriaxone sodium Allergy Unknown Verified 08/19/16 20:20 [From Rocephin] zolpidem tartrate Allergy Unknown Verified 08/19/16 20:20 [From Ambien] ED Review of Systems ROS: Stated complaint: UNRESPONSIVE Other details as noted in HPI Comment: Unobtainable due to pts medical conditions ED Past Medical Hx - Past Medical History Previous Medical History?: Yes Hx Hypertension: Yes Hx CVA: Yes (dysarthria, right hemiparesis) Hx Heart Attack/AMI: No Hx Congestive Heart Failure: No Hx Diabetes: Yes Hx Deep Vein Thrombosis: No Hx Pulmonary Embolism: No Hx Liver Disease: No Hx Renal Disease: No Hx Sickle Cell Disease: No Hx Arthritis: No Hx Seizures: No Hx Kidney Stones: No Hx Asthma: No Hx COPD: No Hx Tuberculosis: No Hx Dementia: No Hx HIV: No Additional medical history: Wheelchair and bedbound, kidney mass - Surgical History Past Surgical History?: Yes Hx Coronary Stent: No Hx Open Heart Surgery: No Hx Pacemaker: No Hx Internal Defibrillator: No Hx Cholecystectomy: Yes Hx Appendectomy: No Hx Breast Surgery: No Additional Surgical History: , hysterectomy - Family History Family history: no significant - Social History Smoking Status: Never Smoker - Medications Home Medications: Home Medications Medication Instructions Recorded Confirmed Last Taken Type Aspirin [Aspirin BABY CHEW TAB] 81 mg PO QDAY 07/12/15 08/19/16 Unknown History AtorvaSTATin [Lipitor] 20 mg PO QHS 08/19/16 08/19/16 Unknown History Omeprazole Magnesium [PriLOSEC Otc] 20 mg PO QDAY 08/19/16 08/19/16 Unknown History Carvedilol [Coreg] 6.25 mg PO BID #60 tablet 09/03/16 Unknown Rx Levofloxacin 250Mg/50Ml [Levaquin 250 mg IV Q24H #3 piggyback 09/03/16 Unknown Rx IV PREMIX] Megestrol Acetate [Megace] 400 mg PO DAILY 30 Days 09/03/16 Unknown Rx ED Physical Exam - General Limitations: Altered Mental Status, Physical Limitation General appearance: obtunded - Head Head exam: Present: atraumatic, normocephalic - Eye Eye exam: Present: normal appearance, PERRL, other (right gaze preference, new per family) - ENT ENT exam: Present: normal exam, normal orophraynx, mucous membranes moist - Neck Neck exam: Present: normal inspection, full ROM. Absent: tenderness - Respiratory Respiratory exam: Present: normal lung sounds bilaterally, respiratory distress (tachypnea) - Cardiovascular Cardiovascular Exam: Present: normal rhythm, tachycardia, normal heart sounds - GI/Abdominal GI/Abdominal exam: Present: soft, normal bowel sounds. Absent: distended, tenderness - Extremities Exam Extremities exam: Present: normal inspection. Absent: full ROM (contracture noted to RUE at wrist), tenderness - Back Exam Back exam: Present: normal inspection, full ROM - Neurological Exam Neurological exam: Present: other (GCS 9 (E4, V1, M4)) - Skin Skin exam: Present: warm, dry, intact ED Course Vital Signs 10/12/16 10/12/16 10/12/16 19:02 19:06 19:11 Temperature 103 F H Pulse Rate 121 H 123 H 118 H Respiratory 45 H 45 H Rate Blood Pressure 110/62 O2 Sat by Pulse 97 100 Oximetry 10/12/16 10/12/16 10/12/16 19:15 19:21 19:30 Temperature Pulse Rate 101 H 118 H 114 H Respiratory 44 H 45 H Rate Blood Pressure 107/64 107/64 O2 Sat by Pulse 100 100 Oximetry 10/12/16 10/12/16 10/12/16 19:47 19:51 20:01 Temperature Pulse Rate 115 H 115 H 106 H Respiratory 51 H 52 H 37 H Rate Blood Pressure 107/64 107/64 107/64 O2 Sat by Pulse 96 Oximetry 10/12/16 10/12/16 10/12/16 20:11 20:21 20:31 Temperature Pulse Rate 102 H 102 H 100 H Respiratory 26 H 41 H 18 Rate Blood Pressure 107/64 117/52 108/47 O2 Sat by Pulse 98 Oximetry 10/12/16 10/12/16 10/12/16 20:41 20:51 20:59 Temperature Pulse Rate 100 H 100 H Respiratory 40 H 32 H 38 H Rate Blood Pressure 108/47 97/45 O2 Sat by Pulse 79 L 82 L 92 Oximetry 10/12/16 10/12/16 10/12/16 21:01 21:11 21:21 Temperature Pulse Rate 97 H 99 H 96 H Respiratory 21 38 H 32 H Rate Blood Pressure 103/55 103/55 107/56 O2 Sat by Pulse 100 Oximetry 10/12/16 10/12/16 21:30 21:41 Temperature Pulse Rate 89 87 Respiratory 34 H 16 Rate Blood Pressure 110/53 110/53 O2 Sat by Pulse 100 Oximetry - Reevaluation(s) Reevaluation #1: 10/12/16 21:15 Due to the inability to obtain blood for labs, I performed a left femoral stick for blood draw. Using an 18-gauge needle attached to a syringe, the left femoral vein was punctured under sterile technique. A total of 30 mL of blood was obtained. No further bleeding was noted. Patient tolerated the procedure well. - Lab Data Result diagrams: 10/12/16 21:24 10/12/16 21:24 Lab Results 10/12/16 10/12/16 10/12/16 Range/Units 18:05 21:24 21:24 WBC 13.7 H (4.5-11.0) K/mm3 RBC 2.80 L (3.65-5.03) M/mm3 Hgb 8.8 L (10.1-14.3) gm/dl Hct 29.1 L (30.3-42.9) % MCV 104 H (79-97) fl MCH 31 (28-32) pg MCHC 30 (30-34) % RDW 21.4 H (13.2-15.2) % Plt Count 182 (140-440) K/mm3 Lymph % (Auto) 10.5 L (13.4-35.0) % [place] % (Auto) 7.4 H (0.0-7.3) % Eos % (Auto) 0.0 (0.0-4.3) % Baso % (Auto) 0.5 (0.0-1.8) % Lymph # 1.4 (1.2-5.4) K/mm3 [place] # 1.0 H (0.0-0.8) K/mm3 Eos # 0.0 (0.0-0.4) K/mm3 Baso # 0.1 (0.0-0.1) K/mm3 Seg Neutrophils % 81.6 H (40.0-70.0) % Seg Neutrophils # 11.1 H (1.8-7.7) K/mm3 PT 10.4 L (12.2-14.9) Sec. INR 0.75 L (0.87-1.13) Sodium (137-145) mmol/L Potassium (3.6-5.0) mmol/L Chloride (98-107) mmol/L Carbon Dioxide (22-30) mmol/L Anion Gap mmol/L BUN (7-17) mg/dL Creatinine (0.7-1.2) mg/dL Estimated GFR ml/min BUN/Creatinine Ratio % Glucose (65-100) mg/dL Lactic Acid (0.7-2.0) mmol/L Calcium (8.4-10.2) mg/dL Total Bilirubin (0.1-1.2) mg/dL AST (5-40) units/L ALT (7-56) units/L Alkaline Phosphatase (35-129) units/L Troponin T (0.00-0.029) ng/mL Total Protein (6.3-8.2) g/dL Albumin (3.9-5) g/dL Albumin/Globulin Ratio % Urine Color [place] (Yellow) Urine Turbidity Turbid (Clear) Urine pH 5.0 (5.0-7.0) Ur Specific [place] 1.020 (1.003-1.030) Urine Protein 100 mg/dl (Negative) mg/dL Urine Glucose (UA) Neg (Negative) mg/dL Urine Ketones Neg (Negative) mg/dL Urine Blood Mod (Negative) Urine Nitrite Neg (Negative) Urine Bilirubin Neg (Negative) Urine Urobilinogen 4.0 (<2.0) mg/dL Ur Leukocyte Esterase Mod (Negative) Urine WBC (Auto) > 182.0 H (0.0-6.0) /HPF Urine RBC (Auto) 25.0 (0.0-6.0) /HPF U Epithel Cells (Auto) 15.0 H (0-13.0) /HPF Urine Bacteria (Auto) 4+ (Negative) /HPF Urine WBC Clumps 3+ /HPF Urine Mucus 2+ /HPF 10/12/16 10/12/16 Range/Units 21:24 21:24 WBC (4.5-11.0) K/mm3 RBC (3.65-5.03) M/mm3 Hgb (10.1-14.3) gm/dl Hct (30.3-42.9) % MCV (79-97) fl MCH (28-32) pg MCHC (30-34) % RDW (13.2-15.2) % Plt Count (140-440) K/mm3 Lymph % (Auto) (13.4-35.0) % [place] % (Auto) (0.0-7.3) % Eos % (Auto) (0.0-4.3) % Baso % (Auto) (0.0-1.8) % Lymph # (1.2-5.4) K/mm3 [place] # (0.0-0.8) K/mm3 Eos # (0.0-0.4) K/mm3 Baso # (0.0-0.1) K/mm3 Seg Neutrophils % (40.0-70.0) % Seg Neutrophils # (1.8-7.7) K/mm3 PT (12.2-14.9) Sec. INR (0.87-1.13) Sodium 160 H (137-145) mmol/L Potassium 4.7 (3.6-5.0) mmol/L Chloride 127.5 H (98-107) mmol/L Carbon Dioxide 15 L (22-30) mmol/L Anion Gap 22 mmol/L BUN 56 H (7-17) mg/dL Creatinine 4.0 H (0.7-1.2) mg/dL Estimated GFR 13 ml/min BUN/Creatinine Ratio 14.00 % Glucose 122 H (65-100) mg/dL Lactic Acid 3.9 H* (0.7-2.0) mmol/L Calcium 10.2 (8.4-10.2) mg/dL Total Bilirubin 0.9 (0.1-1.2) mg/dL AST 32 (5-40) units/L ALT 9 (7-56) units/L Alkaline Phosphatase 69 (35-129) units/L Troponin T 0.656 H* (0.00-0.029) ng/mL Total Protein 6.7 (6.3-8.2) g/dL Albumin 2.2 L (3.9-5) g/dL Albumin/Globulin Ratio 0.5 % Urine Color (Yellow) Urine Turbidity (Clear) Urine pH (5.0-7.0) Ur Specific [place] (1.003-1.030) Urine Protein (Negative) mg/dL Urine Glucose (UA) (Negative) mg/dL Urine Ketones (Negative) mg/dL Urine Blood (Negative) Urine Nitrite (Negative) Urine Bilirubin (Negative) Urine Urobilinogen (<2.0) mg/dL Ur Leukocyte Esterase (Negative) Urine WBC (Auto) (0.0-6.0) /HPF Urine RBC (Auto) (0.0-6.0) /HPF U Epithel Cells (Auto) (0-13.0) /HPF Urine Bacteria (Auto) (Negative) /HPF Urine WBC Clumps /HPF Urine Mucus /HPF - EKG Data -: EKG Interpreted by Or EKG shows normal: sinus rhythm Rate: tachycardia When compared to previous EKG there are: changes noted Interpretation: other (sinus tachycardia, left axis deviation, RBBB, new deep T wave inversions in V1 and V2 compared to previous (09/01/2016)) - Radiology Data Radiology results: report reviewed, image reviewed interpreted by me: Chest x-ray is rotated to the patient's right. There is no acute cardiopulmonary abnormality noted compared to previous images. CT of head shows no acute intracranial abnormality. 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 - Medical Decision Making Lab and imaging results reviewed and discussed with the patient's family. Patient has been given IV Zosyn due to her history of pseudomonas UTI. Giving additional IV fluids due to the patient's elevated lactic acid and acute renal failure. Due to the patient's hypernatremia, the IV fluids will be changed to D5 half-normal saline. Patient is to be admitted by the hospitalist. - Differential Diagnosis Sepsis, pneumonia, UTI, ICH Critical Care Time: Yes Critical care time in (mins) excluding proc time.: 60 Critical care attestation.: If time is entered above; I have spent that time in minutes in the direct care of this critically ill patient, excluding procedure time. Critical Care Time: The high probability of a clinically significant, sudden or life threatening deterioration of the renal and neurologic system(s) required my full and direct attention, intervention and personal management. The aggregate critical care time was 60 minutes. This time is in addition to time spent performing reported procedures but includes the following: [x] Data Review and interpretation [x] Patient assessment and monitoring of vital signs [x] Documentation [x] Medication orders and management ED Disposition Clinical Impression: Sepsis due to urinary tract infection, FRAN (acute kidney injury), Dehydration, Acute hypernatremia Disposition: OP ADMITTED IP TO THIS HOSP Is pt being admited?: Yes Condition: Fair Referrals: PRIMARY CARE, [Primary Care Provider] - 3-5 Days Time of Disposition: 22:14
[2016-10-12] MEDS ORDERED: TYLENOL PR ONE (19:30)
--- NOTE | 2016-10-12 20:04 | Admit Criteria Form ---
Admission Criteria Documentation: SEVERE SEPSIS Clinical Indications for Admission to Inpatient Care (Place 'X' for any and all applicable criteria): Hospital admission is needed for appropriate care of the patient because of ANY ONE of the following: [X]I. Hemodynamic instability indicated by ANY ONE of the following(1)(2)(3)( 4)(5): [X]a. Vital sign abnormality not readily corrected by appropriate treatment within 12 to 24 hours indicated by ANY ONE of the following: [X]i) Tachycardia that persists despite appropriate treatment []ii) Hypotension that persists despite appropriate treatment []iii) Orthostatic vital sign changes that persist despite appropriate treatment [X]b. Vital sign abnormality that is severe indicated by ANY ONE of the following: [X]i. Inadequate perfusion indicated by ANY ONE of the following: [X]1) Lactic acidosis (greater than 2 mmol/L) []2) New abnormal capillary refill (greater than 3 seconds) []3) Reduced urine output [X]4) New altered mental status []5) Myocardial Ischemia []ii. Mean arterial pressure [A] less than 60 mm Hg []iii. Mean arterial pressure[A] less than 70 mm Hg after 30 minutes of appropriate treatment (eg, fluid resuscitation) []iv. Sustained heart rate greater than 120 beats per minute in adult []v. IV inotropic or vasopressor medication required to maintain adequate blood pressure or perfusion []II. Systemic or infectious condition causing severe symptoms or findings not responsive to emergency or observation care treatment (as appropriate) indicated by ANY ONE of the following: []a. Cardiac arrhythmias of immediate concern(1)(2)(3) []b. Severe endocrine disorder (eg, thyrotoxicosis, adrenal insufficiency)(4)(5) []c. Seizures (eg, new or recurrent)(6) []d. New-onset end organ failure or dysfunction as indicated by ANY ONE of the following: []i. Acute unexplained hypoxemia (eg, not from lung infection or chronic disease)(7)(8)(9) []ii. Acute renal failure as indicated by new onset of ANY ONE of the following(10)(11)(12)(13)(14): []1) 3-fold rise in serum creatinine from baseline []2) Serum creatinine greater than 4 mg/dL (354 micromoles/L) with acute rise greater than 0.5 mg/dL (44.2 micromoles/L) []3) Reduction of more than 75% in estimated glomerular filtration rate from baseline. []4) Estimated glomerular filtration rate less than 35 mL/min/1.73m2 ( 0.59 mL/sec/1.73m2) in child younger than 18 years. []5) Cessation of urine output indicated by ALL of the following: []A. Adequate volume status []B. Inadequate urine output as indicated by ANY ONE of the following: []a. Urine output less than 0.3 mL/kg/hr for 24 hours []b. Anuria (urine output less than 0.1 mL/kg/hr) for 12 hours []iii. Acute mental status changes(15) []iv. Acute hepatic failure (eg, plasma bilirubin greater than 4 mg/ dL (68 micromoles/L), new INR greater than 2.0)(16)(17) []e. Unmanageable nausea and vomiting(18) []f. New-onset or uncontrolled central diabetes insipidus(19)(20) []g. Clinically significant dehydration(18)(21) []h. Hypoglycemia(22) []i. Acidosis (pH less than 7.35) or alkalosis (pH greater than 7.45)( 22)(23) []j. Toxic drug level that indicates need for specific monitoring or treatment(24)(25) []k. Severe electrolyte abnormalities indicated by ALL of the following( 1)(2)(3): []i. Electrolytes and associated findings are not as expected for patient baseline or acceptable treatment effects. []ii. Severe abnormalities indicated by ANY ONE of the following: []1) Sodium less than 130 mEq/L (mmol/L) (new) []2) Sodium less than 135 mEq/L (mmol/L) with ANY ONE of the following: []A. Uncorrectable (to near normal or chronic baseline) after trial of outpatient and emergency treatment []B. Altered mental status []C. Seizures []D. Severe medical etiology requiring inpatient management (eg , heart failure, hypovolemia) []3) Sodium greater than 155 mEq/L (mmol/L) []4) Sodium greater than 150 mEq/L (mmol/L) with ANY ONE of the following: []A. Uncorrectable (to near normal or chronic baseline) with outpatient and emergency treatment []B. Altered mental status []C. Seizures []D. Severe medical etiology (eg, hypovolemia, diabetes insipidus) []5) Potassium less than 2.5 mEq/L (mmol/L) despite outpatient and emergency treatment []6) Potassium less than 3 mEq/L (mmol/L) with ANY ONE of the following : []A. Weakness []B. Cardiac abnormality (eg, arrhythmia, conduction disturbance ) []C. Cardiac ischemia []D. Ileus []E. Ongoing medical cause requiring inpatient management (eg, acute renal wasting or SIADH) []F. Other severe symptoms []7) Potassium greater than 6.5 mEq/L (mmol/L) []8) Potassium greater than 5 mEq/L (mmol/L) with ANY ONE of the following: []A. Uncorrectable (to near normal or chronic baseline) with outpatient and emergency treatment []B. Severe ECG findings[A] []C. Acute worsening of renal failure (creatinine greater than 2.5 mg/dL (221 micromoles/L) or significant elevation for age and size) []D. Severe weakness []E. Severe medical etiology (eg, hemolysis, infection, drug overdose) []9) Calcium less than 7 mg/dL (1.75 mmol/L) despite outpatient and emergency treatment(5) []10) Calcium less than 8 mg/dL (2 mmol/L) with significant symptoms or findings (eg, altered mental status, muscle spasms, seizures, breathing difficulty, cardiac abnormality (eg, arrhythmia or conduction disturbance))(5) []11) Calcium greater than 14 mg/dL (3.5 mmol/L)(5) []12) Calcium greater than 12 mg/dL (3 mmol/L) with ANY ONE of the following(5): []A. Uncorrectable (to near normal or chronic baseline) with outpatient and emergency treatment []B. Significant dehydration or hypovolemia as indicated by ALL of the following(3)(6)(7): []a. Not resolved with initial treatments []b. Clinically significant dehydration as indicated by ANY ONE of the following: [](1) Vomiting refractory to outpatient treatment (ie, precluding oral rehydration) [](2) Inability to drink [](3) Hypernatremia or other electrolyte abnormality unable to be corrected with outpatient and emergency treatment [](4) Failure to remain hydrated with outpatient therapy [](5) Reduced urine output [](6) Hypotension [](7) Serious cause for dehydration requiring acute hospitalization ( eg, bowel obstruction, increased intracranial pressure, infectious cause) [](8) Child with ANY ONE of the following(8): [](i) Severe abdominal tenderness [](ii) Adequate care not available at home [](iii) Severe dehydration (greater than 9% loss of body weight) []C. Significant symptoms or findings (eg, altered mental status , cardiac abnormality (eg, arrhythmia, conduction disturbance), malignant etiology requiring inpatient treatment) []13) Phosphorus less than 1 mg/dL (0.32 mmol/L) []14) Phosphorus less than 1.5 mg/dL (0.48 mmol/L) with ANY ONE of the following: []A. Patient unresponsive to outpatient and emergency treatment []B. Significant symptoms or findings (eg, weakness, altered mental status, breathing difficulty, seizures, rhabdomyolysis) []15) Phosphorus greater than 10 mg/dL (3.2 mmol/L) []16) Phosphorus greater than 4.5 mg/dL (1.45 mmol/L) (new) with ANY ONE of the following: []A. Severe medical etiology (eg, crush injury, acute renal failure) []B. Associated hypocalcemia with significant findings (eg, neurologic symptoms, altered mental status, muscle spasms, seizures, breathing difficulty, cardiac abnormality (eg, arrhythmia, conduction disturbance)) []16) Magnesium less than 1 mg/dL (0.41 mmol/L) []17) Magnesium less than 1.5 mg/dL (0.62 mmol/L) with ANY ONE of the following: []A. Patient unresponsive to outpatient and emergency treatment []B. Associated hypocalcemia with significant findings (eg, altered mental status, muscle spasms, seizures, breathing difficulty, cardiac abnormality (eg, arrhythmia, conduction disturbance)) []C. Associated hypokalemia (potassium less than 3 mEq/L (mmol/L )) with risk of arrhythmia []18) Magnesium greater than 4 mEq/L (2 mmol/L) []19) Magnesium greater than 2.5 mEq/L (1.25 mmol/L) with significant symptoms or findings (eg, weakness, altered mental status, cardiac abnormality (eg, arrhythmia, conduction disturbance), breathing difficulty, severe medical etiology (eg, renal failure, hypovolemia)) []20) Uric acid greater than 20 mg/dL (1190 micromoles/L)(9) []21) Uric acid greater than 8 mg/dL (476 micromoles/L) with significant symptoms or findings of tumor lysis syndrome (eg, creatinine greater than 1.5 times upper limit of normal, cardiac abnormality (eg , arrhythmia, conduction disturbance), seizure)(9) []III. High fever or other high-risk infection situation as indicated by ANY ONE of the following(26)(27)(28): []a. Outpatient and observation care antimicrobial treatment unavailable, not effective, or not appropriate []b. Documented bacteremia []c. Temperature greater than 104.9 degrees F (40.5 degrees C) (oral) []d. Temperature greater than 103.1 degrees F (39.5 degrees C) (oral) or less than 96.8 degrees F (36 degrees C) (rectal) that does not respond to emergency treatment and observation care []IV. High-risk febrile neutropenia[A] as indicated by ANY ONE of the following(29)(30)(31)(32): []a. Profound neutropenia[B] anticipated to extend for more than 7 days []b. Hemodynamic instability []c. Hypoxemia []d. Tachypnea []e. Altered mental status []f. New-onset abdominal pain []g. New-onset vomiting or diarrhea []h. Oral or gastrointestinal mucositis that interferes with swallowing or causes severe diarrhea []i. Focal infection (eg, cellulitis, pneumonia, central line or catheter infection, perirectal abscess) []j. Renal insufficiency (eg, GFR of less than 30 mL/min/1.73m2 (0.5 mL/sec /1.73m2)). []k. Severe liver dysfunction (transaminase levels greater than 5 times normal) []l. Platelet count less than 50,000/mm3 (50 x109/L)(33) []m. Leukemia or lymphoma induction therapy []n. Leukemia not in complete remission or with evidence of disease progression []o. Bone marrow transplant patient []p. Alemtuzumab being used for therapy []q. [employer] Supportive Care in Cancer (MASCC) Risk Index score of less than 21[C](33)(35). []V. Isolation required (eg, tuberculosis that requires isolation, Ebola infection)[D](36)(37)(38)(39)(40) []. Gangrene that requires treatment beyond emergency or observation level care(41)(42) []VII. Antitoxin administration and ongoing observation required (eg, tetanus, botulism)(43)(44) []. Suspected infection with rapid progression or severe symptoms as indicated by ANY ONE of the following(45): []a. Streptococcal or staphylococcal toxic shock(46) []b. Diphtheria(47) []c. Hantavirus(48) []d. Severe acute respiratory syndrome(8)(49) []e. Anthrax(50) []f. Ebola[D](36)(37)(38) []g. Necrotizing soft tissue infection(41)(42) []h. Plague(50) []i. Other suspected infection that requires care beyond emergency or observation level care []VII. Severe adverse drug or systemic toxin reaction as indicated by ANY ONE of the following(24): []a. Serotonin syndrome(51)(52) []b. Neuroleptic malignant syndrome(51)(52) []c. Cholinergic syndrome with severe symptoms (eg, bronchorrhea, weakness , mental status changes, seizures)(53) []d. Anticholinergic syndrome []e. Sympathetic syndrome with severe symptoms (eg, seizures, mental status changes, cardiac dysrhythmias) []f. Other severe adverse drug or systemic toxin reaction that remains after emergency or observation level care (as appropriate) []VIII. Allergic reaction with severe symptoms (not responsive to emergency or observation care treatment as appropriate), including ANY ONE of the following(54): []a. Airway edema (pharyngeal, epiglottic, or laryngeal edema) []b. Stridor []c. Respiratory failure []d. Bronchospasm []e. Hypotension []IX. Environmental emergency (not responsive to emergency or observation care treatment as appropriate) as indicated by ANY ONE of the following(55)(56): []a. Hyperthermia []b. Heat stroke []c. Heat exhaustion []d. Hypothermia (temperature less than 95 degrees F (35 degrees C) rectal) (57) []e. Electrocution(58) []X. Complications of transplanted organ (ie, not covered elsewhere)[E] indicated by ANY ONE of the following(59): []a. Acute graft rejection (or graft vs. host disease)[F] requiring inpatient management (eg, intravenous immunosuppression)(60)(61)(62)( 63) []b. Acute failure of transplanted organ necessitating inpatient care (eg, cannot be managed in other setting) []c. Infection requiring inpatient management (eg, Hemodynamic instability, need for intravenous antimicrobial treatment)(64)(65) []d. Other complication of transplanted organ requiring inpatient management []XI. Systemic or Infectious Condition condition, symptom, or finding for which emergency and observation care have failed or are not considered appropriate. See General Criteria: Observation Care, General Admission Criteria or Pediatric General Admission Criteria guideline as appropriate. (Contents from SEVERE SEPSIS and SYSTEMIC OR INFECTIOUS CONDITION clinical indications for admission to inpatient care have been integrated in this form) The [facility] content created by [facility] has been revised. The portions of the content which have been revised are identified through the use of italic text or in bold and [facility] has neither reviewed nor approved the modified material. All other unmodified content is copyright [facility]. Please see references footnoted in the original [facility] edition 2016 Admission Criteria Met: Yes
--- NOTE | 2016-10-12 20:04 | Cat Scan Report ---
FINAL REPORT EXAM: CT HEAD/BRAIN WO CON HISTORY: Fever/Sepsis TECHNIQUE: CT head without contrast PRIORS: Comparison is dated and August 30, 2016 FINDINGS: Encephalomalacia within the left posterior parietal lobe unchanged prior exam there is ex vacuo dilatation of posterior lateral ventricle. Focal hypodensity within thalamus and periventricular white matter is again noted unchanged No acute intra or extra-axial hemorrhage identified. No evidence for midline shift or mass effect. Stable appearance from prior exam. Bony calvarium is intact Visualized portions of the mastoids and paranasal sinuses demonstrate no acute change. A mucous retention cyst noted in the left maxillary sinus. IMPRESSION: Chronic ischemic changes remote left thalamic and posterior parietal infarcts No acute change identified
[2016-10-12 20:51] LABS: Bacteria,Urine 4+ /HPF (Negative); Bilirubin,Urine NEG (Negative); Blood,Urine MOD (Negative); Ketones,Urine NEG (Negative); Leukocyte Esterase,Urine MOD (Negative); Mucus,Urine 2+ /HPF; Nitrite,Urine NEG (Negative)
[2016-10-12 20:52] LABS: WBC,Urine > 182.0 /HPF (0.0-6.0)
[2016-10-12] MEDS ORDERED: ZOSYN/NS 4.5GM/100ML 4.5 GM/100 ML VIAL IV ONE (20:54)
[2016-10-12 21:34] LABS: Basophils % (Auto) 0.5 % (0.0-1.8); Hematocrit 29.1 % (30.3-42.9); Hemoglobin 8.8 gm/dl (10.1-14.3); Mean Corpuscular HGB Conc 30 % (30-34); Mean Corpuscular Hemoglobin 31 pg (28-32); Mean Corpuscular Volume 104 fl (79-97); White Blood Count 13.7 K/mm3 (4.5-11.0)
[2016-10-12 21:40] LABS: Platelet Count 182 K/mm3 (140-440); Red Cell Distribution Width 21.4 % (13.2-15.2)
[2016-10-12 21:56] LABS: Albumin 2.2 g/dL (3.9-5); Albumin/Globulin Ratio 0.5 %; Bilirubin,Total 0.9 mg/dL (0.1-1.2); Calcium 10.2 mg/dL (8.4-10.2); Chloride 127.5 mmol/L (98-107); Potassium 4.7 mmol/L (3.6-5.0); Total Protein 6.7 g/dL (6.3-8.2)
[2016-10-12 22:15] LABS: INR TNR (0.87-1.13)
[2016-10-12] MEDS ORDERED: D5/0.45NS 1,000 ML IV SCH ×2 (23:00→23:45)
[2016-10-12] MEDS ORDERED: NORCO 5/325 PO PRN (23:01)
[2016-10-12] MEDS ORDERED: MILK OF MAGNESIA PO PRN (23:01)
[2016-10-12] MEDS ORDERED: TYLENOL PO PRN (23:01)
[2016-10-12] MEDS ORDERED: DULCOLAX PR PRN (23:01)
[2016-10-12] MEDS ORDERED: ZOFRAN IV PRN (23:01)
--- NOTE | 2016-10-12 23:14 | History and Physical Report ---
History of Present Illness Date of examination: 10/12/16 Date of admission: 10/12/2016 Chief complaint: Altered mental status History of present illness: Shouldn't 76-year-old chronically ill-appearing female on services for [facility] hospice presents with a chief complaint of altered mental status. Patient family states she is usually alert and able to communicate vocal commands. Patient is bed bound has been decompensating slowly overload. At time and that's why she was on hospice however has been alert. Patient family states over the past week she's had decreased responsiveness until today she was unresponsive workup in ED patient found to have sepsis with UTI and acute renal failure as well. Patient had prior history recent history of being treated for UTI with Pseudomonas. Was treated with Zosyn has been initiated. Patient at present unresponsive unable to get any history from the patient herself. Past History Past Medical History: hypertension, renal failure (UTI), other. denies: acute [place], atrial fib Past Surgical History: cholecystectomy, , hysterectomy Social history: lives with family. denies: smoking, alcohol abuse, prescription drug abuse Family history: no significant family history Medications and Allergies Allergies Allergy/AdvReac Type Severity Reaction Status Date / Time ceftriaxone sodium Allergy Unknown Verified 08/19/16 20:20 [From Rocephin] zolpidem tartrate Allergy Unknown Verified 08/19/16 20:20 [From Ambien] Home Medications Medication Instructions Recorded Confirmed Last Taken Type Aspirin [Aspirin BABY CHEW TAB] 81 mg PO QDAY 07/12/15 08/19/16 Unknown History AtorvaSTATin [Lipitor] 20 mg PO QHS 08/19/16 08/19/16 Unknown History Carvedilol [Coreg] 6.25 mg PO BID #60 tablet 09/03/16 Unknown Rx Megestrol Acetate [Megace] 400 mg PO DAILY 30 Days 09/03/16 Unknown Rx Active Meds: Active Medications Acetaminophen (Tylenol) 650 mg PO Q4H PRN PRN Reason: Pain MILD(1-3)/Fever >100.5/URBAN Acetaminophen/Hydrocodone Bitart ([place] 5/325) 2 each PO Q6H PRN PRN Reason: Pain, Moderate (4-6) Aspirin (Baby Aspirin) 81 mg PO QDAY [facility] Bisacodyl (Dulcolax) 10 mg [place] QDAY PRN PRN Reason: Constipation unrelieved by MOM Enoxaparin Sodium (Lovenox) 30 mg SUB-Q QDAY [facility] Dextrose/Sodium Chloride (D5/0.45ns) 1,000 mls @ 100 mls/hr IV DIRECT CHOCO Piperacillin Sod/Tazobactam Sod (Zosyn/Ns 2.25 Gm/50ml) 2.25 gm in 50 mls @ 100 mls/hr IV Q8HR [facility]OCO PRN Reason: Protocol Stop: 10/15/16 23:59 Magnesium Hydroxide (Milk Of Magnesia) 30 ml PO Q4H PRN PRN Reason: Constipation Miscellaneous Medication (Megestrol Acetate [Megace]) 400 mg PO DAILY [facility] Ondansetron HCl (Zofran) 4 mg IV Q8H PRN PRN Reason: N/V unrelieved by [facility] Review of Systems Constitutional: anorexia, fatigue, weakness, malaise, poor appetite, daytime sleepiness, chronic pain, no weight loss, no fever, no lethargy, no chronic headaches Ears, nose, mouth and throat: no ear pain, no tinnitis, no nose pain, no nasal congestion, no dental pain, no mouth pain, no hoarseness, no sore throat, no swelling in throat, no post-nasal drip, no vertigo, no neck fullness/pressure, no neck lump Cardiovascular: no chest pain, no orthopnea, no palpitations, no rapid/ irregular heart beat, no edema, no syncope, no lightheadedness, no shortness of breath, no dyspnea on exertion, no phlebitis, no high blood pressure Respiratory: no excessive sputum, no hemoptysis, no wheezing, no pleurisy, no pain on inspiration, no respiratory infections, no home oxygen Gastrointestinal: nausea, no abdominal pain, no vomiting, no diarrhea, no constipation, no change in bowel habits, no hematemesis, no coffee ground emesis , no BRBPR, no hematochezia, no loss of appetite, no early satiety, no heartburn , no indigestion, no excessive gas, no dyspepsia/bloating, no early satiety Genitourinary Female: flank pain, urinary frequency, mixed incontinence, no dyspareunia, no pelvic pain, no menorrhagia, no dysuria, no urgency, no stress incontinence, no post void dribbling, no difficulty voiding, no hematuria, no nocturia, no vaginal discharge, no vaginal odor, no vaginal dryness, no mood problems, no prolapse symptoms, no difficulties conceiving Musculoskeletal: other (decubitus ulcer), no neck stiffness, no neck pain, no shooting arm pain, no arm numbness/tingling, no low back pain, no shooting leg pain, no leg numbness/tingling, no redness of joints Integumentary: redness, sores, wounds, foot/leg ulcers, no rash, no pruritis, no jaundice, no boils, no blisters, no growths, no lesions, no darkening of skin , no depigmentation, no dryness, no brittle nails, no striae, no hirsutism Neurological: other (altered mental status with lethargy) Psychiatric: memory loss, change in appetite, no change in sleep habits, no sleep disturbances, no suicidal ideation, no disorientation, no hallucinations, no anhedonia, no confusion Endocrine: no cold intolerance, no polyphagia, no polydipsia, no polyuria, no excessive sweating, no low blood sugars Hematologic/Lymphatic: no thrombophilia Allergic/Immunologic: no allergic rhinitis, no persistent infections, no anaphylaxis Exam - Constitutional Vitals: Temp Pulse Resp BP Pulse Ox 97.4 F L 80 22 133/66 90 10/12/16 22:56 10/12/16 22:56 10/12/16 22:56 10/12/16 22:56 10/12/16 22:56 General appearance: Present: no acute distress, other (resting minimally responsive to tactile stimulus.) - EENT Eyes: Present: PERRL. Absent: irregular pupil, scleral icterus - Neck Neck: Present: supple, normal ROM - Respiratory Respiratory effort: normal Respiratory: bilateral: diminished (poor inspiratory effort) - Cardiovascular Rhythm: regular (tachycardia hypotension) - Extremities Extremity abnormal: other (decreased pulses also has evidence of onychomycosis atrophic skin changes.) Peripheral Pulses: abnormal - Abdominal General gastrointestinal: Present: soft, non-tender, non-distended, normal bowel sounds, other (scaphoid hypoactive bowel sounds) - Integumentary Integumentary: Present: clear, warm, dry - Musculoskeletal Musculoskeletal: generalized weakness - Psychiatric Psychiatric: other - Neurologic Neurologic: focal deficits (responsive), other (dense right hemiparesis fixed contracted. Atrophy of lower extremities.) Results - Labs CBC & Chem 7: 10/12/16 21:24 10/12/16 21:24 Labs: Laboratory Last Values WBC 13.7 K/mm3 (4.5-11.0) H 10/12/16 21:24 RBC 2.80 M/mm3 (3.65-5.03) L 10/12/16 21:24 Hgb 8.8 gm/dl (10.1-14.3) L 10/12/16 21:24 Hct 29.1 % (30.3-42.9) L 10/12/16 21:24 MCV 104 fl (79-97) H 10/12/16 21:24 MCH 31 pg (28-32) 10/12/16 21:24 MCHC 30 % (30-34) 10/12/16 21:24 RDW 21.4 % (13.2-15.2) H 10/12/16 21:24 Plt Count 182 K/mm3 (140-440) 10/12/16 21:24 Lymph % (Auto) 10.5 % (13.4-35.0) L 10/12/16 21:24 Moffat % (Auto) 7.4 % (0.0-7.3) H 10/12/16 21:24 Eos % (Auto) 0.0 % (0.0-4.3) 10/12/16 21:24 Baso % (Auto) 0.5 % (0.0-1.8) 10/12/16 21:24 Lymph # 1.4 K/mm3 (1.2-5.4) 10/12/16 21:24 Moffat # 1.0 K/mm3 (0.0-0.8) H 10/12/16 21:24 Eos # 0.0 K/mm3 (0.0-0.4) 10/12/16 21:24 Baso # 0.1 K/mm3 (0.0-0.1) 10/12/16 21:24 Seg Neutrophils % 81.6 % (40.0-70.0) H 10/12/16 21:24 Seg Neutrophils # 11.1 K/mm3 (1.8-7.7) H 10/12/16 21:24 PT TNR 10/12/16 21:24 INR TNR 10/12/16 21:24 Sodium 160 mmol/L (137-145) H 10/12/16 21:24 Potassium 4.7 mmol/L (3.6-5.0) 10/12/16 21:24 Chloride 127.5 mmol/L (98-107) H 10/12/16 21:24 Carbon Dioxide 15 mmol/L (22-30) L 10/12/16 21:24 Anion Gap 22 mmol/L 10/12/16 21:24 BUN 56 mg/dL (7-17) H 10/12/16 21:24 Creatinine 4.0 mg/dL (0.7-1.2) H 10/12/16 21:24 Estimated GFR 13 ml/min 10/12/16 21:24 BUN/Creatinine Ratio 14.00 % 10/12/16 21:24 Glucose 122 mg/dL (65-100) H 10/12/16 21:24 Lactic Acid 3.9 mmol/L (0.7-2.0) H* 10/12/16 21:24 Calcium 10.2 mg/dL (8.4-10.2) 10/12/16 21:24 Total Bilirubin 0.9 mg/dL (0.1-1.2) 10/12/16 21:24 AST 32 units/L (5-40) 10/12/16 21:24 ALT 9 units/L (7-56) 10/12/16 21:24 Alkaline Phosphatase 69 units/L (35-129) 10/12/16 21:24 Troponin T 0.656 ng/mL (0.00-0.029) H* 10/12/16 21:24 Total Protein 6.7 g/dL (6.3-8.2) 10/12/16 21:24 Albumin 2.2 g/dL (3.9-5) L 10/12/16 21:24 Albumin/Globulin Ratio 0.5 % 10/12/16 21:24 Triglycerides 101 mg/dL (2-149) 10/12/16 21:24 Cholesterol 95 mg/dL (50-199) 10/12/16 21:24 LDL Cholesterol Direct 53 mg/dL (50-130) 10/12/16 21:24 HDL Cholesterol 22 mg/dL (40-59) L 10/12/16 21:24 Cholesterol/HDL Ratio 4.31 % 10/12/16 21:24 Urine Color Mary Ann (Yellow) 10/12/16 18:05 Urine Turbidity Turbid (Clear) 10/12/16 18:05 Urine pH 5.0 (5.0-7.0) 10/12/16 18:05 Ur Specific [place] 1.020 (1.003-1.030) 10/12/16 18:05 Urine Protein 100 mg/dl mg/dL (Negative) 10/12/16 18:05 Urine Glucose (UA) Neg mg/dL (Negative) 10/12/16 18:05 Urine Ketones Neg mg/dL (Negative) 10/12/16 18:05 Urine Blood Mod (Negative) 10/12/16 18:05 Urine Nitrite Neg (Negative) 10/12/16 18:05 Urine Bilirubin Neg (Negative) 10/12/16 18:05 Urine Urobilinogen 4.0 mg/dL (<2.0) 10/12/16 18:05 Ur Leukocyte Esterase Mod (Negative) 10/12/16 18:05 Urine WBC (Auto) > 182.0 /HPF (0.0-6.0) H 10/12/16 18:05 Urine RBC (Auto) 25.0 /HPF (0.0-6.0) 10/12/16 18:05 U Epithel Cells (Auto) 15.0 /HPF (0-13.0) H 10/12/16 18:05 Urine Bacteria (Auto) 4+ /HPF (Negative) 10/12/16 18:05 Urine WBC Clumps 3+ /HPF 10/12/16 18:05 Urine Mucus 2+ /HPF 10/12/16 18:05 - Imaging and Cardiology EKG: image reviewed Chest x-ray: image reviewed CT Scan - head: image reviewed Assessment and Plan Advance Directives: Yes (wants everything done) VTE prophylaxis?: Chemical - Patient Problems (1) FRAN (acute kidney injury) Current Visit: Yes Status: Acute Plan to address problem: Acute kidney injury multifactorial secondary to sepsis and vasomotor nephropathy. IV volume repletion initiated. (2) Acute hypernatremia Current Visit: Yes Status: Acute Plan to address problem: IV fluids been changed to D5 half-normal saline secondary to volume depletion. Patient has had short run of intravascular volume repletion changed to D5 half- normal 4 hypernatremia. (3) Sepsis due to urinary tract infection Current Visit: Yes Status: Acute Plan to address problem: Dyspnea previous recent infection Pseudomonas UTI will treat with Zosyn for this was sensitive to Zosyn before. Follow-up blood culture data and titrate and biotics accordingly. (4) Altered mental status Current Visit: No Status: Acute Qualifiers: Altered mental status type: A Coma depth: C Coma timing: C Qualified Code(s): R41.0 - Disorientation, unspecified Plan to address problem: Altered mental status secondary to sepsis with UTI. (5) Anemia Current Visit: No Status: Acute Qualifiers: Anemia type: A Iron deficiency anemia type: I Vitamin B12 deficiency anemia type: V Folate deficiency anemia type: F Bone marrow failure anemia type: B Hemolytic anemia type: H Other causes of anemia: O Plan to address problem: Anemia most likely multifactorial secondary to malnutrition and infection as well. No evidence of acute blood loss. (6) Hypotension Current Visit: No Status: Acute Qualifiers: Hypotension type: H Trimester: T Plan to address problem: Secondary to sepsis with UTI. Replace IV fluids treat underlying etiology of sepsis. (7) Physical debility Current Visit: No Status: Acute Plan to address problem: Debility seems to have been going on for long time most likely dysphagia secondary to CVA. Patient appears to be hospice appropriate from initial evaluation. We need to let hospice and no that patient is in the hospital. (8) Pseudomonas urinary tract infection Current Visit: No Status: Acute Plan to address problem: Treat with Zosyn sensitive in the past titrate accordingly. (9) Volume depletion Current Visit: No Status: Acute Plan to address problem: Vasomotor nephropathy.
[2016-10-13 03:39] LABS: INR 5.48 (0.87-1.13)
[2016-10-13] MEDS ORDERED: SODIUM BICARBONATE IV ONE (05:13)
--- NOTE | 2016-10-13 05:25 | Event Note ---
Date: 10/13/16 Response to cold blue on patient Ms. Davis. Patient was found without a pulse and unresponsive as well. Been minimally responsive since admission however did have pulse this time patient did not have a pulse. Within approximately 5 minutes patient regained pulse and sats went up to 90% placed on nonrebreather. Once different now is patient has agonal breathing pattern. Would be concerned about another stroke. We'll transfer to the ICU obtain chest x-ray to evaluate agonal breathing pattern we'll obtain CT scan head as well. Patient 's overall prognosis is poor. This could all also be secondary to sepsis as well. Severe sepsis. Patient now blood pressure 123/70. Blood glucose was 277 and O2 sats 92%.
[2016-10-13] MEDS ORDERED: VITAMIN K (ADULT ONLY) SUB-Q ONE (05:30)
[2016-10-13] MEDS ORDERED: VANCOMYCIN/NS 1 GM/250 ML 1 GM/250 ML BAG IV ONE (05:56)
[2016-10-13] MEDS ORDERED: ZOSYN/NS 2.25 GM/50ML 2.25 GM/50 ML BAG IV SCH (06:00)
[2016-10-13] MEDS ORDERED: SODIUM BICARBONATE 150 MEQ in D5W 1,000 ML IV SCH (06:00)
[2016-10-13 06:36] LABS: ISTAT Base Excess -7; ISTAT HCO3 18.4; ISTAT PCO2 32.4 (35-45); ISTAT PH 7.363 (7.35-7.45); ISTAT PO2 229 (80-105); ISTAT SO2 100; ISTAT TCO2 19
[2016-10-13 06:36] LABS: ISTAT Base Excess -11; ISTAT HCO3 16.9; ISTAT PCO2 42.6 (35-45); ISTAT PH 7.207 (7.35-7.45); ISTAT PO2 232 (80-105); ISTAT SO2 100; ISTAT TCO2 18
--- NOTE | 2016-10-13 06:50 | XRay Report ---
FINAL REPORT PROCEDURE: XR CHEST 1V AP TECHNIQUE: Chest radiograph anteroposterior view. CPT 04669 HISTORY: pulmonary infiltrates COMPARISON: 08/30/2016 FINDINGS: Heart: Normal. Mediastinum/Vessels: Normal. Lungs/Pleural space: Mild infiltrates in the left lower lung and the right hilar region.. Bony thorax: No acute osseous abnormality. Life support devices: None. IMPRESSION: Mild infiltrates in the left lower lung and the right hilar region..
--- NOTE | 2016-10-13 08:27 | Consultation ---
History of Present Illness - Reason for Consult acute renal failure, chronic renal failure, metabolic acidosis - History of Present Illness Patient is 76 year old AAF with history significant for Hypertension, DM type2, Coronary artery disease, CVA with right hemiparesis and CKD who is well known to our servcie and being followed in our office for CKD stage 3 presented to the emergency room with one week h/o decreased responsiveness. Yesterday patient became unresponsive. Workup in ED patient found to have sepsis with UTI , Hypernatremia, Acute Kidney Injury and Lactic acidosis. Unable to obtain any history from patient was there was no family members at the bedside. Patient had similar presentations in the past. Her creatinine was 4 with Sodium of 160 yesterday. Past History Past Medical History: hypertension, renal failure (UTI), other. denies: acute [place], atrial fib Past Surgical History: cholecystectomy, , hysterectomy Social history: lives with family. denies: smoking, alcohol abuse, prescription drug abuse Family history: no significant family history Medications and Allergies Allergies Allergy/AdvReac Type Severity Reaction Status Date / Time ceftriaxone sodium Allergy Unknown Verified 08/19/16 20:20 [From Rocephin] zolpidem tartrate Allergy Unknown Verified 08/19/16 20:20 [From Ambien] Home Medications Medication Instructions Recorded Confirmed Last Taken Type Aspirin [Aspirin BABY CHEW TAB] 81 mg PO QDAY 07/12/15 10/12/16 Unknown History AtorvaSTATin [Lipitor] 20 mg PO QHS 08/19/16 10/12/16 Unknown History Carvedilol [Coreg] 6.25 mg PO BID #60 tablet 09/03/16 10/12/16 Unknown Rx Megestrol Acetate [Megace] 400 mg PO DAILY 30 Days 09/03/16 10/12/16 Unknown Rx Active Meds: Active Medications Acetaminophen (Tylenol) 650 mg PO Q4H PRN PRN Reason: Pain MILD(1-3)/Fever >100.5/URBAN Acetaminophen/Hydrocodone Bitart ([place] 5/325) 2 each PO Q6H PRN PRN Reason: Pain, Moderate (4-6) Aspirin (Baby Aspirin) 81 mg PO QDAY [facility] Bisacodyl (Dulcolax) 10 mg [place] QDAY PRN PRN Reason: Constipation unrelieved by MOM Dextrose/Sodium Chloride (D5/0.45ns) 1,000 mls @ 100 mls/hr IV DIRECT [facility]OCO Last Admin: 10/12/16 23:40 Dose: 100 mls/hr Piperacillin Sod/Tazobactam Sod (Zosyn/Ns 2.25 Gm/50ml) 2.25 gm in 50 mls @ 100 mls/hr IV Q8HR [facility] PRN Reason: Protocol Stop: 10/15/16 23:59 Sodium Bicarbonate 150 meq/ (Dextrose) 1,150 mls @ 42 mls/hr IV DIRECT CHOCO Last Admin: 10/13/16 06:15 Dose: 42 mls/hr Magnesium Hydroxide (Milk Of Magnesia) 30 ml PO Q4H PRN PRN Reason: Constipation Megestrol Acetate (Megace) 400 mg PO QDAY [facility] Ondansetron HCl (Zofran) 4 mg IV Q8H PRN PRN Reason: N/V unrelieved by Reglan Review of Systems ROS unobtainable: due to mental status Exam - Vital Signs Vital signs: Vital Signs Pulse Resp Pulse Ox 121 H 45 H 97 10/12/16 19:02 10/12/16 19:02 10/12/16 19:02 - General Appearance General appearance: well-developed, chronically ill, frail, other (barely arousable) EENT: PERRL, mucous membranes moist Neck: Present: neck supple Respiratory: Other (coarse breath sounds) Heart: regular, S1S2 Gastrointestinal: Present: normoactive bowel sounds. Absent: tenderness, distended Integumentary: no rash, warm and dry Neurologic: other (faint grimace) Musculoskeletal: Present: other (right UE contractures(chronic)) Results - Lab Results 10/12/16 21:24 10/12/16 21:24 Most recent lab results Calcium 10.2 mg/dL (8.4-10.2) 10/12/16 21:24 - Image Kidney/bladder ultrasound: pending Assessment and Plan - Patient Problems (1) FRAN (acute kidney injury) Current Visit: Yes Status: Acute Plan to address problem: Acute Kidney Injury superimposed on CKD stage 3 in the setting of Sepsis. Continue IV fluids. Repeat CMP ordered, will follow the renal function. Renal US ordered. Renal prognosis is guarded. (2) Acute hypernatremia Current Visit: Yes Status: Acute Plan to address problem: Patient is on D5 1/2NS. Will adjust IV fluids based on repeat Sodium level. (3) Sepsis due to urinary tract infection Current Visit: Yes Status: Acute Plan to address problem: On Zosyn. (4) Elevated troponin I level Current Visit: No Status: Acute (5) Lactic acidosis Current Visit: Yes Status: Acute (6) Extracellular volume depletion Current Visit: No Status: Acute Plan to address problem: Continue IV fluids. (7) CVA (cerebral vascular accident) Current Visit: No Status: Chronic Qualifiers: CVA mechanism: C Precerebral and cerebral artery: P Laterality of affected vessel: L
--- NOTE | 2016-10-13 08:43 | XRay Report ---
AP chest x-ray. Findings: There is suboptimal inspiration. The heart size is borderline. Ill-defined density in the left lower lobe with obscuration of the hemidiaphragm suggests atelectasis or infiltrate. A followup film with emphasis on better inspiration is recommended. There are no other significant findings. Impression: Left lower lobe atelectasis or infiltrate with suboptimal inspiration.
[2016-10-13 09:01] LABS: Creatine Kinase MB 6.7 ng/mL (0.0-4.0)
[2016-10-13] MEDS: BABY ASPIRIN PO SCH (09:39)
[2016-10-13] MEDS: MEGACE PO SCH (09:40)
[2016-10-13] MEDS ORDERED: LOVENOX SUB-Q SCH (10:00)
[2016-10-13] MEDS ORDERED: MEGESTROL ACETATE 400 MG PO SCH (10:00)
--- NOTE | 2016-10-13 10:10 | Consultation ---
HISTORY OF PRESENT ILLNESS: The patient is a 76-year-old female with multiple medical problems who presented with worsening mental status. The family noted that she was becoming less alert and less communicative. She was bed bound. She was then brought to the hospital. There is recent history of urinary tract infection. She has a history of previous coronary artery disease, atrial fibrillation, hypertension, and diabetes. She also has hyperlipidemia. She has had a stroke in the past. No symptoms have been reported from the patient. Cardiology consult was requested because of abnormal cardiac enzymes and EKG. PAST MEDICAL HISTORY: Quite extensive with allergies to Zolpidem and Rocephin. MEDICATIONS: See nurse's list. PAST SURGICAL HISTORY: Cholecystectomy, , hysterectomy. SOCIAL HISTORY: No description of smoking or heavy alcohol use. FAMILY HISTORY: No significant family history described. REVIEW OF SYSTEMS: Includes chronic kidney disease, recent UTI, right hemiparesis. 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 There is no description of disorder, psychiatric disorders, lung disease. PHYSICAL EXAMINATION: GENERAL: Well-developed, well-nourished, currently only responsive to noxious stimuli. Does not follow commands or speak. Limbs are flaccid. HEENT: Eyes, nose, and throat: No evidence of trauma. Pupils are small and poorly responsive to light, equal in size. NECK: Supple. No masses. There is mild JVD in the supine position. LUNGS: A few dry crackles in the left lung field. No rhonchi. Respirations are not labored. HEART: Regular rhythm with an S4 gallop and a grade 2 systolic murmur. ABDOMEN: Soft, nontender. Bowel sounds intact, but diminished. No masses. EXTREMITIES: No cyanosis, clubbing, edema. Peripheral pulses are intact, but diminished. Right hand is contracted. NEUROLOGIC: Not responsive, unconscious, responses to noxious stimuli. Pupils small, equal, and poorly responsive to light. Limbs are flaccid. Neurologic exam was limited. SKIN: Clear. LABORATORY DATA: Remarkable for an abnormal EKG with sinus rhythm, right bundle branch block, anterior ST-T depression with T-waves inversion and prolonged QT interval compared to a previous electrocardiogram, precordial ST-T changes are more prominent and the QT interval is more prolonged. IMPRESSION: 1. Abnormal cardiac enzymes with troponin of 0.6. So far, there is no suggestion of acute coronary syndrome and troponins are typically elevated to some degree with renal failure. There is a history of coronary artery disease. Given the patient's age and current Status, she will be treated conservatively with aspirin, Lovenox, and statin therapy. An echocardiogram is pending. 2. Abnormal EKG with most notably a prolonged QT interval observed for electrolyte abnormalities and arrhythmias. 3. Altered mental status and the patient with a history of previous strokes: This could be a metabolic encephalopathy, and additional CVA even is being considered. 4. Sepsis with evidence of urinary tract infection and pneumonia on chest x-ray. 5. History of atrial fibrillation, currently in sinus rhythm. 6. Coagulopathy, consider Hematology evaluation. 7. Acute on chronic kidney disease. 8. Hyperlipidemia. 9. . 10. Anemia. 11. History of hypertension. 12. History of diabetes. PLAN: Observe on current therapy, check the echocardiogram results. Daily QT interval checks, correct electrolytes. Overall, the prognosis is guarded. Thank you for this consultation. JOB# [id number] JASMINE/NTS
[2016-10-13] MEDS ORDERED: D5W 1,000 ML IV SCH (11:00)
--- NOTE | 2016-10-13 11:45 | Consultation ---
History of Present Illness Consult date: 10/13/16 Reason for consult: dyspnea, other (altered mental status) History of present illness: Called to evaluate a 76-year-old -Lao female, admitted to ICU last evening after she was referred from hospice care with altered mental status. The patient reportedly is on hospice secondary to stroke or some neurological problems according to nursing staff report. No family at the bedside for further review. She was found to be severely dehydrated and hypotensive, with severe hypernatremia. Arterial blood gases were drawn and they were consistent with mixed respiratory and metabolic acidosis. She was given a fluid bolus in the ER and admitted to the ICU for further care. Reportedly with sepsis secondary to urinary tract infection. Will call to evaluate. No additional history at this time. Past History Past Medical History: hypertension, renal failure (UTI), other. denies: acute IL, atrial fib Past Surgical History: cholecystectomy, , hysterectomy Social history: lives with family. denies: smoking, alcohol abuse, prescription drug abuse Family history: no significant family history Medications and Allergies Allergies Allergy/AdvReac Type Severity Reaction Status Date / Time ceftriaxone sodium Allergy Unknown Verified 08/19/16 20:20 [From Rocephin] zolpidem tartrate Allergy Unknown Verified 08/19/16 20:20 [From Ambien] Home Medications Medication Instructions Recorded Confirmed Last Taken Type Aspirin [Aspirin BABY CHEW TAB] 81 mg PO QDAY 07/12/15 10/12/16 Unknown History AtorvaSTATin [Lipitor] 20 mg PO QHS 08/19/16 10/12/16 Unknown History Carvedilol [Coreg] 6.25 mg PO BID #60 tablet 09/03/16 10/12/16 Unknown Rx Megestrol Acetate [Megace] 400 mg PO DAILY 30 Days 09/03/16 10/12/16 Unknown Rx Active Meds: Active Medications Acetaminophen (Tylenol) 650 mg PO Q4H PRN PRN Reason: Pain MILD(1-3)/Fever >100.5/URBAN Acetaminophen/Hydrocodone Bitart ([place] 5/325) 2 each PO Q6H PRN PRN Reason: Pain, Moderate (4-6) Aspirin (Baby Aspirin) 81 mg PO QDAY [facility] Last Admin: 10/13/16 09:39 Dose: Not Given Bisacodyl (Dulcolax) 10 mg [place] QDAY PRN PRN Reason: Constipation unrelieved by MOM Dextrose/Sodium Chloride (D5/0.45ns) 1,000 mls @ 100 mls/hr IV DIRECT [facility] Last Admin: 10/12/16 23:40 Dose: 100 mls/hr Piperacillin Sod/Tazobactam Sod (Zosyn/Ns 2.25 Gm/50ml) 2.25 gm in 50 mls @ 100 mls/hr IV Q8HR [facility] PRN Reason: Protocol Stop: 10/15/16 23:59 Dextrose (D5w) 1,000 mls @ 100 mls/hr IV DIRECT [facility] Magnesium Hydroxide (Milk Of Magnesia) 30 ml PO Q4H PRN PRN Reason: Constipation Megestrol Acetate (Megace) 400 mg PO QDAY [facility] Last Admin: 10/13/16 09:40 Dose: Not Given Ondansetron HCl (Zofran) 4 mg IV Q8H PRN PRN Reason: N/V unrelieved by Reglan Review of Systems ROS unobtainable: due to mental status Physical Examination Vital signs: Vital Signs Pulse Resp Pulse Ox 121 H 45 H 97 10/12/16 19:02 10/12/16 19:02 10/12/16 19:02 General appearance: no acute distress, lethargic ENT: oropharynx dry Effort: normal Ascultation: Bilateral: clear, diminished breath sounds Cardiovascular: regular rate and rhythm Gastrointestinal: normoactive bowel sounds, non-distended Extremities: no cyanosis, no edema Musculoskeletal: no deformities other (unable to assess fully. The patient Is to be lethargic at this time.) Results - Laboratory Findings CBC and BMP: 10/12/16 21:24 10/12/16 21:24 ABG POC ABG pH 7.363 (7.35-7.45) 10/13/16 06:28 POC ABG pCO2 32.4 (35-45) L 10/13/16 06:28 POC ABG pO2 229 (80-105) H 10/13/16 06:28 POC ABG HCO3 18.4 10/13/16 06:28 POC ABG Total CO2 19 10/13/16 06:28 POC ABG O2 Sat 100 10/13/16 06:28 PT/INR, D-dimer PT 50.5 Sec. (12.2-14.9) H 10/13/16 02:48 INR 5.48 (0.87-1.13) H* 10/13/16 02:48 Abnormal lab findings: Abnormal Labs 10/13/16 10/13/16 10/13/16 02:48 05:12 05:13 PT 50.5 H INR 5.48 H* POC ABG pH 7.207 L POC ABG pCO2 POC ABG pO2 232 H POC Glucose 277 H Total Creatine Kinase CK-MB (CK-2) CK-MB (CK-2) Rel Index 10/13/16 10/13/16 06:28 08:06 PT INR POC ABG pH POC ABG pCO2 32.4 L POC ABG pO2 229 H POC Glucose Total Creatine Kinase 138 H CK-MB (CK-2) 6.7 H CK-MB (CK-2) Rel Index 4.8 H - Diagnostic Findings Chest x-ray: report reviewed (question about pulmonary infiltrates pneumonia to be excluded.) Assessment and Plan Acute respiratory failure. Multifactorial including sepsis, possible pneumonia , severe dehydration with electrolyte imbalance Shock. Improving. Hypovolemic Abnormal cardiac enzymes. Probably ongoing stress and hypotension. She also cardiology comments Severe dehydration Severe hypernatremia Acute on chronic renal insufficiency AMS History of stroke Recommendations Gentle fluid replacement. Initial laboratory suggests a deficit of 3.9 L Discontinue bicarbonate at this time. Monitor serial electrolytes every 4-6 hours the next 24 hours Gentle improvement in hypernatremia is recommended. Add free water as needed Continue current antibiotics Check blood and urine culture DVT prophylaxis Continue current oxygen support Aspiration precautions 40 minutes spent in [id number] patient evaluation and coordination of care with ICU staff.
[2016-10-13 14:30] LABS: Albumin 2.1 g/dL (3.9-5); Albumin/Globulin Ratio 0.4 %; BUN/Creatinine Ratio 14.25; Bilirubin,Total 0.8 mg/dL (0.1-1.2); Chloride 126.8 mmol/L (98-107); Total Protein 6.8 g/dL (6.3-8.2)
[2016-10-13 14:57] LABS: Basophils % (Auto) 0.5 % (0.0-1.8); Eosinophils % (Auto) 0.1 % (0.0-4.3); Hematocrit 30.3 % (30.3-42.9); Hemoglobin 9.1 gm/dl (10.1-14.3); Mean Corpuscular HGB Conc 30 % (30-34); Mean Corpuscular Hemoglobin 31 pg (28-32); Mean Corpuscular Volume 105 fl (79-97); Platelet Count 132 K/mm3 (140-440); Red Blood Count 2.89 M/mm3 (3.65-5.03); White Blood Count 17.8 K/mm3 (4.5-11.0)
[2016-10-13 15:07] LABS: INR 1.81 (0.87-1.13)
[2016-10-13] MEDS ORDERED: SODIUM BICARBONATE FEEDTUBE PRN (15:09)
[2016-10-13] MEDS ORDERED: PANCREAZE DR 10,500 UNIT FEEDTUBE PRN (15:09)
[2016-10-13] MEDS ORDERED: SIMPLE SYRUP FEEDTUBE PRN ×2 (15:09)
[2016-10-13 15:11] LABS: BUN/Creatinine Ratio 15.26; Calcium 9.6 mg/dL (8.4-10.2); Chloride 126.1 mmol/L (98-107); Potassium 4.3 mmol/L (3.6-5.0)
--- NOTE | 2016-10-13 15:20 | Consultation ---
History of Present Illness Consult date: 10/13/16 Requesting physician: MER PFEIFFER Consult reason: elevated troponin History of present illness: The history was obtained from the medical record at the patient is non-verbal and there is no family present. The patient is a 76 year old female with a history of hypertension, diabetes, hyperlipidemia, CVA who presented for evaluation of altered mental status. According to ER documentation, family members reported that over the past week the patient has become less and less responsive. In the ER, she was febrile and mildly hypotensive. Troponin 0.656. WBC 13.7. BUN 56 with a creatinine of 4.0. Sodium 160. Lactic acid 3.9. UA suggestive of UTI. Of note, she was discharged from [facility] last month on home hospice following an admission for altered mental status and UTI. Echo done 2015 showed EF 50-55%. Stress test done 08/2016 was negative for ischemia. Past History Past Medical History: diabetes, hypertension, hyperlipidemia, renal failure (CKD ), stroke Past Surgical History: cholecystectomy, , hysterectomy Social history: lives with family. denies: smoking, alcohol abuse, prescription drug abuse Family history: no significant family history Medications and Allergies Allergies Allergy/AdvReac Type Severity Reaction Status Date / Time ceftriaxone sodium Allergy Unknown Verified 08/19/16 20:20 [From Rocephin] zolpidem tartrate Allergy Unknown Verified 08/19/16 20:20 [From Ambien] Home Medications Medication Instructions Recorded Confirmed Last Taken Type Aspirin [Aspirin BABY CHEW TAB] 81 mg PO QDAY 07/12/15 10/12/16 Unknown History AtorvaSTATin [Lipitor] 20 mg PO QHS 08/19/16 10/12/16 Unknown History Carvedilol [Coreg] 6.25 mg PO BID #60 tablet 09/03/16 10/12/16 Unknown Rx Megestrol Acetate [Megace] 400 mg PO DAILY 30 Days 09/03/16 10/12/16 Unknown Rx Active Meds: Active Medications Acetaminophen (Tylenol) 650 mg PO Q4H PRN PRN Reason: Pain MILD(1-3)/Fever >100.5/URBAN Acetaminophen/Hydrocodone Bitart ([place] 5/325) 2 each PO Q6H PRN PRN Reason: Pain, Moderate (4-6) Lipase/Protease/Amylase (Pancrevelvet Dr 10,500 Unit) 1 each FEEDTUBE PRN PRN PRN Reason: For Clogged Feeding Tube Aspirin (Baby Aspirin) 81 mg PO QDAY [facility] Last Admin: 10/13/16 09:39 Dose: Not Given Bisacodyl (Dulcolax) 10 mg HI QDAY PRN PRN Reason: Constipation unrelieved by MOM Dextrose/Sodium Chloride (D5/0.45ns) 1,000 mls @ 100 mls/hr IV DIRECT [facility] Last Admin: 10/12/16 23:40 Dose: 100 mls/hr Piperacillin Sod/Tazobactam Sod (Zosyn/Ns 2.25 Gm/50ml) 2.25 gm in 50 mls @ 100 mls/hr IV Q8HR [facility] PRN Reason: Protocol Stop: 10/15/16 23:59 Dextrose (D5w) 1,000 mls @ 100 mls/hr IV DIRECT [facility] Magnesium Hydroxide (Milk Of Magnesia) 30 ml PO Q4H PRN PRN Reason: Constipation Megestrol Acetate (Megace) 400 mg PO QDAY [facility] Last Admin: 10/13/16 09:40 Dose: Not Given Ondansetron HCl (Zofran) 4 mg IV Q8H PRN PRN Reason: N/V unrelieved by Reglan Simple Syrup (Simple Syrup) 15 ml FEEDTUBE PRN PRN PRN Reason: Hypoglycemia Simple Syrup (Simple Syrup) 30 ml FEEDTUBE PRN PRN PRN Reason: Hypoglycemia Sodium Bicarbonate (Sodium Bicarbonate) 325 mg FEEDTUBE PRN PRN PRN Reason: For Clogged Feeding Tube Review of Systems ROS unobtainable: due to mental status Physical Examination Last Vital Signs Temp 97.7 F 10/13/16 12:00 Pulse 84 10/13/16 12:10 Resp 20 10/13/16 12:10 BP 107/62 10/13/16 12:00 Pulse Ox 84 10/13/16 10:50 General appearance: no acute distress (pt. minimally responsive to noxious stimuli) HEENT: Positive: Normocephaly, Mucus Membranes Moist Neck: Positive: neck supple, trachea midline Cardiac: Positive: Reg Rate and Rhythm, S1/S2 Lungs: Positive: Decreased Breath Sounds Neuro: Positive: Other (pt. minimally responsive to noxious stimuli) Abdomen: Positive: Soft, Active Bowel Sounds. Negative: Tender Skin: Positive: Clear. Negative: Rash Extremities: Absent: edema Results 10/13/16 14:37 10/13/16 14:37 Cardiac Enzymes 10/13/16 10/13/16 Range/Units 08:06 08:06 AST 34 (5-40) units/L CK-MB (CK-2) 6.7 H (0.0-4.0) ng/mL Coagulation 10/13/16 10/13/16 Range/Units 02:48 14:42 PT 50.5 H 21.0 H (12.2-14.9) Sec. INR 5.48 H* 1.81 H (0.87-1.13) CBC 10/13/16 Range/Units 14:37 WBC 17.8 H (4.5-11.0) K/mm3 RBC 2.89 L (3.65-5.03) M/mm3 Hgb 9.1 L (10.1-14.3) gm/dl Hct 30.3 (30.3-42.9) % Plt Count 132 L (140-440) K/mm3 Lymph # 1.4 (1.2-5.4) K/mm3 Cochran # 1.1 H (0.0-0.8) K/mm3 Eos # 0.0 (0.0-0.4) K/mm3 Baso # 0.1 (0.0-0.1) K/mm3 Comprehensive Metabolic Panel 10/13/16 10/13/16 Range/Units 08:06 14:37 Sodium 161 H* 159 H (137-145) mmol/L Potassium 5.0 4.3 (3.6-5.0) mmol/L Chloride 126.8 H 126.1 H (98-107) mmol/L Carbon Dioxide 13 L 16 L (22-30) mmol/L BUN 57 H 58 H (7-17) mg/dL Creatinine 4.0 H 3.8 H (0.7-1.2) mg/dL Glucose 117 H 174 H (65-100) mg/dL Calcium 10.0 9.6 (8.4-10.2) mg/dL AST 34 (5-40) units/L ALT 11 (7-56) units/L Alkaline Phosphatase 71 (35-129) units/L Total Protein 6.8 (6.3-8.2) g/dL Albumin 2.1 L (3.9-5) g/dL - Imaging and Cardiology Echo: report reviewed (07/2016: EF 50-55%) EKG: image reviewed EKG interpretations - Telemetry EKG Rhythm: Sinus Rhythm - EKG Sinus rhythms and dysrhythmias: sinus rhythm AV and intraventricular conduction: right bundle branch block Repolarization changes or abnormalities: ST or T wave suggestive of ischemia Assessment and Plan Elevated troponin-->likely due to sepsis/hypotension/renal failure will trend Lexiscan thallium stress test 08/22/2016: no ischemia Echo 07/2016: EF 50-55% Dehydration/acute on chronic kidney disease Altered mental status Sepsis/urinary tract infection Hx. of hypertension Diabetes Hx. of CVA Elevated troponin likely due to sepsis, hypotension and acute renal failure. Will obtain addtional sets of enzymes. Negative stress test 08/2016. The patient has been seen in conjunction with Dr. Purvis who agrees with the assessment and plan of care. Thank you Dr. Pfeiffer for allowing us to participate in the care of this patient.
--- NOTE | 2016-10-13 15:23 | Event Note ---
Date: 10/13/16 Patient is followed by [facility]. Will transfer cardiac care to [facility].
--- NOTE | 2016-10-13 15:47 | Progress Note ---
Assessment and Plan Assessment and plan: Severe sepsis from UTI - Patient is on IV antibiotics - Previous history of Pseudomonas infection which was sensitive for Zosyn - Elevated lactic acid level Patient was unresponsive and pulseless for 5 minutes - Patient transferred to the ICU - CT head negative - Patient is monitored in the ICU Severe hypernatremia - From dehydration, patient was not eating and drinking well Elevated troponin level - Cardiology consulted Debility - Patient hand is contracted Patient came from hospice care but family wanted everything to be done Elevated INR - Was given vitamin K - Repeated INR is 1.81 Patient needs PICC line Prognosis is poor History Interval history: Patient was seen and evaluated this morning, patient was not communicating, patient is on Ventimask saturating well. Hospitalist Physical - Physical exam Narrative exam: Patient is on Ventimask. Unresponsive. Friable emaciated black lady lying on the bed Vital signs as documented. Head exam is unremarkable. No scleral icterus. Lungs are clear to auscultation. Cardiac exam reveals s1 and s2 normal. Abdominal exam normal bowel sounds. Extremities contracted. 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 - Constitutional Vitals: Temp Pulse Resp BP Pulse Ox 97.7 F 84 20 107/62 84 10/13/16 12:00 10/13/16 12:10 10/13/16 12:10 10/13/16 12:00 10/13/16 10:50 General appearance: Present: no acute distress, other (resting minimally responsive to tactile stimulus.) Results - Labs CBC & Chem 7: 10/13/16 14:37 10/13/16 14:37 Labs: Laboratory Last Values WBC 17.8 K/mm3 (4.5-11.0) H 10/13/16 14:37 RBC 2.89 M/mm3 (3.65-5.03) L 10/13/16 14:37 Hgb 9.1 gm/dl (10.1-14.3) L 10/13/16 14:37 Hct 30.3 % (30.3-42.9) 10/13/16 14:37 MCV 105 fl (79-97) H 10/13/16 14:37 MCH 31 pg (28-32) 10/13/16 14:37 MCHC 30 % (30-34) 10/13/16 14:37 RDW 21.0 % (13.2-15.2) H 10/13/16 14:37 Plt Count 132 K/mm3 (140-440) L 10/13/16 14:37 Lymph % (Auto) 7.7 % (13.4-35.0) L 10/13/16 14:37 Rains % (Auto) 6.3 % (0.0-7.3) 10/13/16 14:37 Eos % (Auto) 0.1 % (0.0-4.3) 10/13/16 14:37 Baso % (Auto) 0.5 % (0.0-1.8) 10/13/16 14:37 Lymph # 1.4 K/mm3 (1.2-5.4) 10/13/16 14:37 Rains # 1.1 K/mm3 (0.0-0.8) H 10/13/16 14:37 Eos # 0.0 K/mm3 (0.0-0.4) 10/13/16 14:37 Baso # 0.1 K/mm3 (0.0-0.1) 10/13/16 14:37 Seg Neutrophils % 85.4 % (40.0-70.0) H 10/13/16 14:37 Seg Neutrophils # 15.2 K/mm3 (1.8-7.7) H 10/13/16 14:37 PT 21.0 Sec. (12.2-14.9) H 10/13/16 14:42 INR 1.81 (0.87-1.13) H 10/13/16 14:42 POC ABG pH 7.363 (7.35-7.45) 10/13/16 06:28 POC ABG pCO2 32.4 (35-45) L 10/13/16 06:28 POC ABG pO2 229 (80-105) H 10/13/16 06:28 POC ABG HCO3 18.4 10/13/16 06:28 POC ABG Total CO2 19 10/13/16 06:28 POC ABG O2 Sat 100 10/13/16 06:28 POC ABG Base Excess -7 10/13/16 06:28 FiO2 100 % 10/13/16 06:28 Sodium 159 mmol/L (137-145) H 10/13/16 14:37 Potassium 4.3 mmol/L (3.6-5.0) 10/13/16 14:37 Chloride 126.1 mmol/L (98-107) H 10/13/16 14:37 Carbon Dioxide 16 mmol/L (22-30) L 10/13/16 14:37 Anion Gap 21 mmol/L 10/13/16 14:37 BUN 58 mg/dL (7-17) H 10/13/16 14:37 Creatinine 3.8 mg/dL (0.7-1.2) H 10/13/16 14:37 Estimated GFR 14 ml/min 10/13/16 14:37 BUN/Creatinine Ratio 15.26 % 10/13/16 14:37 Glucose 174 mg/dL (65-100) H 10/13/16 14:37 POC Glucose 277 (70-105) H 10/13/16 05:12 Lactic Acid 3.7 mmol/L (0.7-2.0) H* 10/13/16 14:41 Calcium 9.6 mg/dL (8.4-10.2) 10/13/16 14:37 Total Bilirubin 0.8 mg/dL (0.1-1.2) 10/13/16 08:06 AST 34 units/L (5-40) 10/13/16 08:06 ALT 11 units/L (7-56) 10/13/16 08:06 Alkaline Phosphatase 71 units/L (35-129) 10/13/16 08:06 Total Creatine Kinase 138 units/L (30-135) H 10/13/16 08:06 CK-MB (CK-2) 6.7 ng/mL (0.0-4.0) H 10/13/16 08:06 CK-MB (CK-2) Rel Index 4.8 (0-4) H 10/13/16 08:06 Troponin T 0.656 ng/mL (0.00-0.029) H* 10/12/16 21:24 Total Protein 6.8 g/dL (6.3-8.2) 10/13/16 08:06 Albumin 2.1 g/dL (3.9-5) L 10/13/16 08:06 Albumin/Globulin Ratio 0.4 % 10/13/16 08:06 Triglycerides 101 mg/dL (2-149) 10/12/16 21:24 Cholesterol 95 mg/dL (50-199) 10/12/16 21:24 LDL Cholesterol Direct 53 mg/dL (50-130) 10/12/16 21:24 HDL Cholesterol 22 mg/dL (40-59) L 10/12/16 21:24 Cholesterol/HDL Ratio 4.31 % 10/12/16 21:24 Urine Color [place] (Yellow) 10/12/16 18:05 Urine Turbidity Turbid (Clear) 10/12/16 18:05 Urine pH 5.0 (5.0-7.0) 10/12/16 18:05 Ur Specific [place] 1.020 (1.003-1.030) 10/12/16 18:05 Urine Protein 100 mg/dl mg/dL (Negative) 10/12/16 18:05 Urine Glucose (UA) Neg mg/dL (Negative) 10/12/16 18:05 Urine Ketones Neg mg/dL (Negative) 10/12/16 18:05 Urine Blood Mod (Negative) 10/12/16 18:05 Urine Nitrite Neg (Negative) 10/12/16 18:05 Urine Bilirubin Neg (Negative) 10/12/16 18:05 Urine Urobilinogen 4.0 mg/dL (<2.0) 10/12/16 18:05 Ur Leukocyte Esterase Mod (Negative) 10/12/16 18:05 Urine WBC (Auto) > 182.0 /HPF (0.0-6.0) H 10/12/16 18:05 Urine RBC (Auto) 25.0 /HPF (0.0-6.0) 10/12/16 18:05 U Epithel Cells (Auto) 15.0 /HPF (0-13.0) H 10/12/16 18:05 Urine Bacteria (Auto) 4+ /HPF (Negative) 10/12/16 18:05 Urine WBC Clumps 3+ /HPF 10/12/16 18:05 Urine Mucus 2+ /HPF 10/12/16 18:05
[2016-10-13 16:59] LABS: Creatine Kinase MB 6.7 ng/mL (0.0-4.0)
--- NOTE | 2016-10-13 17:19 | XRay Report ---
FINAL REPORT EXAM: XR ABDOMEN 1V AP HISTORY: DOBHOFF PLACEMENT TECHNIQUE: Supine abdomen PRIORS: None. FINDINGS: Dobhoff feeding tube present. Distal end overlies the region of the gastric antrum. Moderate colonic and small bowel distention noted. IMPRESSION: Feeding tube with distal end overlying the region of the gastric antrum
[2016-10-14] MEDS ORDERED: NACL 0.9% 500 ML 500 ML IV ONE (00:10)
[2016-10-14 00:53] LABS: BUN/Creatinine Ratio 15.94; Calcium 9.9 mg/dL (8.4-10.2); Chloride 124.8 mmol/L (98-107); Potassium 5.2 mmol/L (3.6-5.0)
[2016-10-14 01:08] LABS: ISTAT Base Excess -20; ISTAT PCO2 19.2 (35-45); ISTAT PO2 177 (80-105); ISTAT SO2 99; ISTAT TCO2 9
[2016-10-14] MEDS ORDERED: LEVOPHED DRIP 4 MG/NS 250 ML 4 MG/250 ML BAG IV ONE (01:24)
[2016-10-14] MEDS ORDERED: SODIUM BICARBONATE IV ONE ×3 (01:24→14:29)
[2016-10-14] MEDS ORDERED: SODIUM BICARBONATE 100 MEQ in D5W 1,000 ML IV ONE (02:00)
[2016-10-14] MEDS ORDERED: SODIUM BICARBONATE 50 MEQ in NACL 0.9% 1000 ML 1,000 ML IV SCH (02:00)
[2016-10-14] MEDS ORDERED: D50W (25GM) IV ONE ×2 (02:54→14:29)
[2016-10-14] MEDS ORDERED: D50W (25GM) IV PRN (02:55)
[2016-10-14] MEDS ORDERED: D10W 1,000 ML IV ONE (03:25)
[2016-10-14] MEDS ORDERED: D10W 1,000 ML IV SCH (04:00)
[2016-10-14] MEDS: LEVOPHED DRIP 4 MG/NS 250 ML 4 MG/250 ML BAG IV SCH ×2 (04:19→11:53)
[2016-10-14 05:12] LABS: ISTAT Base Excess -16; ISTAT HCO3 10.6; ISTAT PCO2 20.6 (35-45); ISTAT PH 7.319 (7.35-7.45); ISTAT PO2 206 (80-105); ISTAT SO2 100; ISTAT TCO2 11
[2016-10-14 06:48] LABS: BUN/Creatinine Ratio 13.8; Calcium 9.6 mg/dL (8.4-10.2); Chloride 123.9 mmol/L (98-107)
[2016-10-14 06:54] LABS: Potassium 5.5 mmol/L (3.6-5.0)
--- NOTE | 2016-10-14 08:15 | Progress Note ---
Assessment and Plan - Patient Problems (1) FRAN (acute kidney injury) Current Visit: Yes Status: Acute Plan to address problem: Acute Kidney Injury superimposed on CKD stage 3 in the setting of Septic shock. Family refused to do any further blood draw. Continue IV fluids. Renal prognosis is guarded. D/w Product Development Assistant. (2) Hyperkalemia Current Visit: Yes Status: Acute Plan to address problem: Kayexalate. (3) Acute hypernatremia Current Visit: Yes Status: Acute Plan to address problem: Patient is on D10. (4) Sepsis due to urinary tract infection Current Visit: Yes Status: Acute Plan to address problem: On Zosyn. (5) Elevated troponin I level Current Visit: No Status: Acute (6) Lactic acidosis Current Visit: Yes Status: Acute (7) Extracellular volume depletion Current Visit: No Status: Acute Plan to address problem: Continue IV fluids. (8) CVA (cerebral vascular accident) Current Visit: No Status: Chronic Qualifiers: CVA mechanism: C Precerebral and cerebral artery: P Laterality of affected vessel: L Subjective Date of service: 10/14/16 Interval history: Patient became hypotensive requiring Pressors. Objective - Vital Signs Vital signs: Vital Signs - 12hr 10/13/16 10/14/16 22:00 01:11 Respiratory 30 H Rate O2 Sat by Pulse 99 Oximetry - General Appearance General appearance: well-developed, frail, other (unresponsive) EENT: PERRL Neck: other (neck is flexed) Respiratory: Present: Other (coarse breath sounds) Cardiology: regular, S1S2 Gastrointestinal: normoactive bowel sounds, no tenderness, no distended Integumentary: no rash Neurologic: other (not responding) Musculoskeletal: other (left arm swollen likely from infiltration) - Lab 10/13/16 14:37 10/14/16 06:03 Most recent lab results Calcium 9.6 mg/dL (8.4-10.2) 10/14/16 06:03
--- NOTE | 2016-10-14 08:59 | XRay Report ---
Single view chest: Compared to 10/13/16. History: Respiratory failure. Findings: Borderline cardiomegaly with left pleural effusion. No consolidation. No significant interval change. Tip of the feeding tube in this distal stomach. Impression: No significant interval change.
[2016-10-14] MEDS ORDERED: KIONEX PO ONE (10:30)
--- NOTE | 2016-10-14 10:42 | Progress Note ---
Assessment and Plan Patient is a critically ill and prognosis is guarded. Still the sodium level is markedly increased to 159. Prognosis is guarded. Mild increase in troponins is most likely secondary to sepsis, CVA and acute on chronic kidney disease. Follow up BMP and cultures. - Patient Problems (1) Thrombocytopenia Current Visit: Yes Status: Acute (2) FRAN (acute kidney injury) Current Visit: Yes Status: Acute (3) Acute hypernatremia Current Visit: Yes Status: Acute (4) Dehydration Current Visit: Yes Status: Acute (5) Hyperkalemia Current Visit: Yes Status: Acute (6) Lactic acidosis Current Visit: Yes Status: Acute (7) Sepsis due to urinary tract infection Current Visit: Yes Status: Acute (8) Altered mental status Current Visit: No Status: Acute Qualifiers: Altered mental status type: A Coma depth: C Coma timing: C (9) Anemia Current Visit: No Status: Chronic Qualifiers: Anemia type: A Iron deficiency anemia type: I Vitamin B12 deficiency anemia type: V Folate deficiency anemia type: F Bone marrow failure anemia type: B Hemolytic anemia type: H Other causes of anemia: O (10) Elevated troponin I level Current Visit: No Status: Acute (11) Extracellular volume depletion Current Visit: No Status: Acute (12) Metabolic encephalopathy Current Visit: No Status: Acute (13) Physical debility Current Visit: No Status: Chronic (14) Sepsis Current Visit: No Status: Acute Qualifiers: Sepsis type: S (15) CVA (cerebral vascular accident) Current Visit: No Status: Chronic Qualifiers: CVA mechanism: C Precerebral and cerebral artery: P Laterality of affected vessel: L (16) Diabetes type 2, controlled Current Visit: No Status: Chronic Qualifiers: Diabetes mellitus complication status: D Diabetes mellitus complication detail: D Diabetic retinopathy severity: D Diabetes mellitus macular edema: D Diabetes mellitus intermediate manager insulin use: D Chronic kidney disease stage: C (17) Left lower lobe pneumonia Current Visit: Yes Status: Acute Qualifiers: Pneumonia type: P Aspiration pneumonia type: A Subjective Date of service: 10/14/16 Interval history: Patient continues to be lethargic, not responding to commands or questions. She is on ventimask. She is acidotic with bicarbonate of 11 in ABG. WBC count is 17.8 and hemoglobin is 9.1. Platelet count mildly decreased to 132. BUN and creatinine today 58 and 4.2. Severe hypenatremia with sodium level of 159. Repeat troponin came back as 0.43. Blood cultures 2 after 24 hours negative. Urine culture is pending at this time. She also has left lower lobe infiltrate versus atelectasis by chest x-ray. She is still on levophed with blood pressure 128/79 mmHg. She is on 10% dextrose infusion now. Urine appears concentrated. Rhythm is normal sinus. Objective Vital Signs Temp Pulse Resp BP Pulse Ox 10/14/16 08:00 94 F L 10/14/16 01:11 30 H 10/13/16 22:00 99 10/13/16 16:00 97.7 F 10/13/16 12:10 84 20 10/13/16 12:00 97.7 F 83 23 107/62 10/13/16 11:50 84 22 10/13/16 11:40 80 18 10/13/16 11:30 77 19 109/69 10/13/16 11:20 79 21 90/50 10/13/16 11:10 79 24 90/50 10/13/16 11:00 78 28 H 90/50 10/13/16 10:50 78 29 H 84 10/13/16 10:40 80 30 H - Physical Examination General: Other (Lethargic, unresponsive.) HEENT: Positive: PERRL, Normocephaly, Mucus Membranes Dry Neck: Positive: neck supple, trachea midline Cardiac: Positive: Reg Rate and Rhythm, S1/S2, S4 Lungs: Positive: Other (Decreased air entry - Left base. On ventimask.) Neuro: Positive: Other (pt. minimally responsive to noxious stimuli) Abdomen: Positive: Soft, Active Bowel Sounds. Negative: Tender Skin: Positive: Clear, Cool. Negative: Rash Gait: Other (Can't be tested.) Extremities: Absent: edema - Labs and Meds Cardiac Enzymes 10/13/16 10/13/16 10/13/16 Range/Units 08:06 16:12 22:52 AST 34 (5-40) units/L CK-MB (CK-2) 6.7 H 8.0 H (0.0-4.0) ng/mL Coagulation 10/13/16 Range/Units 14:42 PT 21.0 H (12.2-14.9) Sec. INR 1.81 H (0.87-1.13) CBC 10/13/16 Range/Units 14:37 WBC 17.8 H (4.5-11.0) K/mm3 RBC 2.89 L (3.65-5.03) M/mm3 Hgb 9.1 L (10.1-14.3) gm/dl Hct 30.3 (30.3-42.9) % Plt Count 132 L (140-440) K/mm3 Lymph # 1.4 (1.2-5.4) K/mm3 [place] # 1.1 H (0.0-0.8) K/mm3 Eos # 0.0 (0.0-0.4) K/mm3 Baso # 0.1 (0.0-0.1) K/mm3 Comprehensive Metabolic Panel 10/13/16 10/13/16 10/13/16 Range/Units 00:00 08:06 14:37 Sodium 157 H 161 H* 159 H (137-145) mmol/L Potassium 5.2 H 5.0 4.3 (3.6-5.0) mmol/L Chloride 124.8 H 126.8 H 126.1 H (98-107) mmol/L Carbon Dioxide 5 L* D 13 L D 16 L (22-30) mmol/L BUN 59 H 57 H 58 H (7-17) mg/dL Creatinine 3.7 H 4.0 H 3.8 H (0.7-1.2) mg/dL Glucose 119 H 117 H 174 H (65-100) mg/dL Calcium 9.9 10.0 9.6 (8.4-10.2) mg/dL AST 34 (5-40) units/L ALT 11 (7-56) units/L Alkaline Phosphatase 71 (35-129) units/L Total Protein 6.8 (6.3-8.2) g/dL Albumin 2.1 L (3.9-5) g/dL 10/14/16 Range/Units 06:03 Sodium 159 H (137-145) mmol/L Potassium 5.5 H D (3.6-5.0) mmol/L Chloride 123.9 H (98-107) mmol/L Carbon Dioxide 7 L* D (22-30) mmol/L BUN 58 H (7-17) mg/dL Creatinine 4.2 H (0.7-1.2) mg/dL Glucose 112 H (65-100) mg/dL Calcium 9.6 (8.4-10.2) mg/dL AST (5-40) units/L ALT (7-56) units/L Alkaline Phosphatase (35-129) units/L Total Protein (6.3-8.2) g/dL Albumin (3.9-5) g/dL - Imaging and Cardiology EKG: image reviewed Echo: report reviewed (07/2016: EF 50-55%) - Telemetry EKG Rhythm: Sinus Rhythm - EKG Sinus rhythms and dysrhythmias: sinus rhythm AV and intraventricular conduction: right bundle branch block Repolarization changes or abnormalities: ST or T wave suggestive of ischemia
[2016-10-14 11:29] VITALS: BP 129/62
[2016-10-14] MEDS: MEGACE PO SCH (11:57)
[2016-10-14] MEDS: BABY ASPIRIN PO SCH (11:57)
--- NOTE | 2016-10-14 12:20 | Progress Note ---
Assessment and Plan Acute respiratory failure. Multifactorial on basically unchanged. I was called last night/early this morning about worsening ABGs after patient was noted with increased distress. Metabolic acidosis. Etiology is sepsis in the setting of hypovolemia and severe dehydration. Same probably she had an admission time. On my review apparently, she had not been receiving the bolus cyst that were ordered yesterday during rounds. Discussed with nursing in detail. Additional problem is that, I was informed of the family requested no further blood sampling be done which is part of her ongoing electrolyte monitoring during the resuscitation. Shock. See above Abnormal cardiac enzymes. Probably ongoing stress and hypotension. She also cardiology comments Severe dehydration Severe hypernatremia principal discussion Acute on chronic renal insufficiency AMS History of stroke Recommendations Fluid replacement.New orders entered and discussed with nursing ICU staff. Continue bicarbonate and update ABGs Monitor serial electrolytes every 4-6 hours the next 24 hours. I discussed this with the patient hospitalist also. Since family is not available, I think that should be called and informed of need to perform serial sampling has part of her treatment. I recommend that if they do wish not to pursue more aggressive care addendum, then patient should be changed to her prior DO NOT RESUSCITATE/hospice care status DVT prophylaxis Continue current oxygen support Aspiration precautions 40 minutes spent in [id number] patient evaluation and coordination of care with ICU staff. Subjective Date of service: 10/14/16 Principal diagnosis: AMS, shock, severe hypernatremia with dehydration, Interval history: No responsive to still lethargic Objective Vital Signs - 12hr 10/14/16 10/14/16 10/14/16 01:11 03:10 03:20 Temperature Pulse Rate 83 84 Respiratory 30 H 31 H 29 H Rate Blood Pressure 82/44 82/44 O2 Sat by Pulse 92 85 Oximetry 10/14/16 10/14/16 10/14/16 03:30 03:40 03:50 Temperature Pulse Rate 85 84 81 Respiratory 32 H 29 H 29 H Rate Blood Pressure 82/44 94/51 94/51 O2 Sat by Pulse 83 L 84 85 Oximetry 10/14/16 10/14/16 10/14/16 04:00 04:10 04:20 Temperature Pulse Rate 79 78 77 Respiratory 29 H 30 H 29 H Rate Blood Pressure 94/51 75/31 70/40 O2 Sat by Pulse 86 100 100 Oximetry 10/14/16 10/14/16 10/14/16 04:30 04:40 04:50 Temperature Pulse Rate 77 79 81 Respiratory 29 H 30 H 30 H Rate Blood Pressure 71/46 O2 Sat by Pulse 100 96 96 Oximetry 10/14/16 10/14/16 10/14/16 05:00 05:10 05:20 Temperature Pulse Rate 83 83 81 Respiratory 28 H 29 H 29 H Rate Blood Pressure 102/44 102/44 102/44 O2 Sat by Pulse 96 93 84 Oximetry 10/14/16 10/14/16 10/14/16 05:30 05:40 05:50 Temperature Pulse Rate 78 76 75 Respiratory 31 H 30 H 28 H Rate Blood Pressure 82/32 73/38 71/40 O2 Sat by Pulse 88 93 95 Oximetry 10/14/16 10/14/16 10/14/16 06:00 06:10 06:20 Temperature Pulse Rate 73 75 77 Respiratory 30 H 29 H 29 H Rate Blood Pressure 74/38 74/38 74/38 O2 Sat by Pulse 99 100 94 Oximetry 10/14/16 10/14/16 10/14/16 06:30 06:40 06:50 Temperature Pulse Rate 79 79 79 Respiratory 29 H 27 H 28 H Rate Blood Pressure 94/65 94/65 94/65 O2 Sat by Pulse 95 87 81 L Oximetry 10/14/16 10/14/16 10/14/16 07:00 07:10 07:20 Temperature Pulse Rate 78 76 75 Respiratory 29 H 27 H 29 H Rate Blood Pressure 81/42 81/42 81/42 O2 Sat by Pulse 85 91 64 L Oximetry 10/14/16 10/14/16 10/14/16 07:30 07:40 07:50 Temperature Pulse Rate 76 74 76 Respiratory 29 H 30 H 29 H Rate Blood Pressure 77/46 77/46 77/46 O2 Sat by Pulse 83 L 88 77 L Oximetry 10/14/16 10/14/16 10/14/16 08:00 08:10 08:20 Temperature 94 F L Pulse Rate 76 77 78 Respiratory 29 H 27 H 27 H Rate Blood Pressure 95/48 95/48 95/48 O2 Sat by Pulse 77 L 92 98 Oximetry 10/14/16 10/14/16 10/14/16 08:30 08:40 08:50 Temperature Pulse Rate 78 77 75 Respiratory 19 27 H 28 H Rate Blood Pressure 92/56 O2 Sat by Pulse 43 L Oximetry 10/14/16 10/14/16 10/14/16 09:00 09:10 09:20 Temperature Pulse Rate 75 75 73 Respiratory 27 H 28 H 29 H Rate Blood Pressure 95/51 O2 Sat by Pulse Oximetry 10/14/16 10/14/16 10/14/16 09:30 09:40 09:50 Temperature Pulse Rate 72 72 72 Respiratory 29 H 44 H 28 H Rate Blood Pressure 85/47 85/47 85/47 O2 Sat by Pulse 19 L 22 L 12 L Oximetry 10/14/16 10/14/16 10/14/16 10:00 10:10 10:20 Temperature Pulse Rate 74 76 78 Respiratory 22 27 H 27 H Rate Blood Pressure 104/53 128/79 128/79 O2 Sat by Pulse Oximetry 10/14/16 10/14/16 10/14/16 10:30 10:40 10:50 Temperature Pulse Rate 79 78 78 Respiratory 27 H 26 H 26 H Rate Blood Pressure 128/79 129/62 129/62 O2 Sat by Pulse 94 95 Oximetry 10/14/16 10/14/16 10/14/16 11:00 11:10 11:20 Temperature Pulse Rate 75 74 75 Respiratory 29 H 26 H 25 H Rate Blood Pressure 129/62 129/62 O2 Sat by Pulse 72 L 89 Oximetry Constitutional: no acute distress, lethargic ENT: oropharynx dry Effort: normal Ascultation: Bilateral: clear, diminished breath sounds Cardiovascular: regular rate and rhythm Gastrointestinal: normoactive bowel sounds, non-distended Extremities: no cyanosis, no edema Neurologic: other (neurologically unchanged) CBC and BMP: 10/13/16 14:37 10/14/16 06:03 ABG, PT/INR, D-dimer: ABG POC ABG pH 7.319 (7.35-7.45) L 10/14/16 04:18 POC ABG pCO2 20.6 (35-45) L 10/14/16 04:18 POC ABG pO2 206 (80-105) H 10/14/16 04:18 POC ABG HCO3 10.6 10/14/16 04:18 POC ABG Total CO2 11 10/14/16 04:18 POC ABG O2 Sat 100 10/14/16 04:18 PT/INR, D-dimer PT 21.0 Sec. (12.2-14.9) H 10/13/16 14:42 INR 1.81 (0.87-1.13) H 10/13/16 14:42 Abnormal lab findings: Abnormal Labs 10/13/16 10/13/16 10/13/16 00:00 02:48 05:12 WBC RBC Hgb MCV RDW Plt Count Lymph % (Auto) [place] # Seg Neutrophils % Seg Neutrophils # PT 50.5 H INR 5.48 H* POC ABG pH POC ABG pCO2 POC ABG pO2 Sodium 157 H Potassium 5.2 H Chloride 124.8 H Carbon Dioxide 5 L* D BUN 59 H Creatinine 3.7 H Glucose 119 H POC Glucose 277 H Lactic Acid Total Creatine Kinase CK-MB (CK-2) CK-MB (CK-2) Rel Index Troponin T Albumin 10/13/16 10/13/16 10/13/16 05:13 06:28 08:06 WBC RBC Hgb MCV RDW Plt Count Lymph % (Auto) [place] # Seg Neutrophils % Seg Neutrophils # PT INR POC ABG pH 7.207 L POC ABG pCO2 32.4 L POC ABG pO2 232 H 229 H Sodium Potassium Chloride Carbon Dioxide BUN Creatinine Glucose POC Glucose Lactic Acid Total Creatine Kinase 138 H CK-MB (CK-2) 6.7 H CK-MB (CK-2) Rel Index 4.8 H Troponin T Albumin 10/13/16 10/13/16 10/13/16 08:06 14:37 14:37 WBC 17.8 H RBC 2.89 L Hgb 9.1 L MCV 105 H RDW 21.0 H Plt Count 132 L Lymph % (Auto) 7.7 L [place] # 1.1 H Seg Neutrophils % 85.4 H Seg Neutrophils # 15.2 H PT INR POC ABG pH POC ABG pCO2 POC ABG pO2 Sodium 161 H* 159 H Potassium Chloride 126.8 H 126.1 H Carbon Dioxide 13 L D 16 L BUN 57 H 58 H Creatinine 4.0 H 3.8 H Glucose 117 H 174 H POC Glucose Lactic Acid Total Creatine Kinase CK-MB (CK-2) CK-MB (CK-2) Rel Index Troponin T Albumin 2.1 L 10/13/16 10/13/16 10/13/16 14:41 14:42 16:12 WBC RBC Hgb MCV RDW Plt Count Lymph % (Auto) [place] # Seg Neutrophils % Seg Neutrophils # PT 21.0 H INR 1.81 H POC ABG pH POC ABG pCO2 POC ABG pO2 Sodium Potassium Chloride Carbon Dioxide BUN Creatinine Glucose POC Glucose Lactic Acid 3.7 H* Total Creatine Kinase CK-MB (CK-2) 6.7 H CK-MB (CK-2) Rel Index 4.9 H Troponin T 0.573 H* Albumin 10/13/16 10/13/16 10/14/16 19:59 22:52 00:48 WBC RBC Hgb MCV RDW Plt Count Lymph % (Auto) [place] # Seg Neutrophils % Seg Neutrophils # PT INR POC ABG pH 7.230 L POC ABG pCO2 19.2 L POC ABG pO2 177 H Sodium Potassium Chloride Carbon Dioxide BUN Creatinine Glucose POC Glucose 162 H Lactic Acid Total Creatine Kinase 157 H CK-MB (CK-2) 8.0 H CK-MB (CK-2) Rel Index 5.0 H Troponin T 0.430 H* D Albumin 10/14/16 10/14/16 10/14/16 02:53 03:09 03:25 WBC RBC Hgb MCV RDW Plt Count Lymph % (Auto) [place] # Seg Neutrophils % Seg Neutrophils # PT INR POC ABG pH POC ABG pCO2 POC ABG pO2 Sodium Potassium Chloride Carbon Dioxide BUN Creatinine Glucose POC Glucose 40 L < 40 L < 40 L Lactic Acid Total Creatine Kinase CK-MB (CK-2) CK-MB (CK-2) Rel Index Troponin T Albumin 10/14/16 10/14/16 10/14/16 04:18 06:03 06:37 WBC RBC Hgb MCV RDW Plt Count Lymph % (Auto) [place] # Seg Neutrophils % Seg Neutrophils # PT INR POC ABG pH 7.319 L POC ABG pCO2 20.6 L POC ABG pO2 206 H Sodium 159 H Potassium 5.5 H D Chloride 123.9 H Carbon Dioxide 7 L* D BUN 58 H Creatinine 4.2 H Glucose 112 H POC Glucose < 40 L Lactic Acid Total Creatine Kinase CK-MB (CK-2) CK-MB (CK-2) Rel Index Troponin T Albumin 10/14/16 06:43 WBC RBC Hgb MCV RDW Plt Count Lymph % (Auto) [place] # Seg Neutrophils % Seg Neutrophils # PT INR POC ABG pH POC ABG pCO2 POC ABG pO2 Sodium Potassium Chloride Carbon Dioxide BUN Creatinine Glucose POC Glucose 213 H Lactic Acid Total Creatine Kinase CK-MB (CK-2) CK-MB (CK-2) Rel Index Troponin T Albumin
--- NOTE | 2016-10-14 12:31 | Event Note ---
EDMD: Blue/intubation note Called to the ICU for a CODE BLUE in progress. Upon my arrival I was informed that the patient into PEA. Patient was receiving chest compressions from staff and being bagged via BVM. The patient was intubated by myself. Patient was left in the care of Dr. Chua, who is at bedside, for remainder of the ACLS protocols The patient was intubated via orotracheal route using a 7.0 mm endotracheal tube. Rapid sequence induction was not used. Positioning was confirmed using auscultation.
--- NOTE | 2016-10-14 12:48 | Death Note ---
Note Date of : 10/14/16 Time of : 12:35 Time Pronounced: 12:35 - Preliminary Cause of (problem) (1) Septic shock Preliminary cause of (2) Cardiac arrest Preliminary cause of (3) Respiratory failure Qualifiers: Chronicity: C Respiratory failure complication: R Preliminary cause of (4) Dehydration, severe Preliminary cause of (5) Acute renal failure (ARF) Qualifiers: Acute renal failure type: A Preliminary cause of
--- NOTE | 2016-10-14 12:52 | Death Summary ---
Summary - Providers Date of service: 10/14/16 Consults: 10/13/16 05:34 Consult to Physician [CONS] Routine Consulting Provider: RU PONCE Reason For Exam: cardiac enzymes Place consult to:: kourtney olivera Notified:: as Was contact made?: Yes If yes, spoke with:: Kourtney Mckenzie called:: 15:18 10/13/16 05:44 Consult to Physician [CONS] Routine Consulting Provider: TAMMY ALEGRIA Reason For Exam: renal failure Place consult to:: dr alegria Notified:: dr alegria Phone number called:: [phone] Was contact made?: Yes If yes, spoke with:: dr alegria Time called:: 07:35 10/13/16 05:53 Consult to Physician [CONS] Routine Consulting Provider: MAXINE DOMINGUEZ Reason For Exam: sob Place consult to:: MAXINE DOMINGUEZ Notified:: ANSWERING SERVICE Phone number called:: [phone] Was contact made?: Yes If yes, spoke with:: DR. SUTHERLAND Time called:: 06:15 Comment:: DR. SUTHERLAND IT TELECOM TECHNICIAN 10/13/16 11:39 Consult to PICC Line RN [CONS] Routine Reason For Exam: poor peripheral access Type Line:: PICC 10/13/16 11:40 Consult to Wound/ET Nurse [CONS] Routine Reason For Exam: sacral wound 10/13/16 14:40 Consult to Dietitian/Nutrition [CONS] Routine Physician Instructions: Reason For Exam: Reason for Consult: Write/Manage Tube Feeding 10/14/16 09:12 Consult to Physician [CONS] Routine Consulting Provider: BARBARA DICKSON Reason For Exam: Central line placement Place consult to:: Barbara Dickson Notified:: Yes Was contact made?: Yes If yes, spoke with:: Dr. Dickson Time called:: 09:13 Comment:: Dr. Dickson in unit, consult was verbally relayed Attending: CLAUDETTE DURHAM MD - summary Date of admission: 10/12/16 23:01 Date of : 10/14/16 Reason for admission: septic shock, FRAN, severe dehydration, cardiac arrest (on 10/13/16) Significant findings: Patient was on non-rebreather mask, Patient was on Asystole when i went to the room. She was intubated by ER doctor. Patient's prognosis was poor since admission and patient's have been communicated about that and understood it. Patient was admitted to ICU after the patient was presented with septic shock, the patient has cardiac arrest for 5 minutes yesterday around 5AM and glen jose was called and patient was resuscitated. Patient came from home hospice and the doctor who admitted the patient had extensively discussed about the prognosis of the patient but the family wanted everything to be done. Around 12:15 GLEN JOSE was called and when I went to the room the patient was in asystole, patient was intubated and resuscitated according to ACLS protocol unfortunately we couldn't salvage the patient and she at 12:35. I tried to contact her daughter (shaila) using the phone number [phone] that I couldn't reach to her. I have also tried to call her at other. times to discuss about the patient but was unsuccessful. I called her son Lambert Hair Sr and told him that the mother . - Final diagnosis (1) Septic shock Note: Final diagnosis: (2) Cardiac arrest Note: Final diagnosis: (3) Respiratory failure Qualifiers: Chronicity: C Respiratory failure complication: R Note: Final diagnosis: (4) Dehydration, severe Note: Final diagnosis: (5) Acute renal failure (ARF) Qualifiers: Acute renal failure type: A Note: Final diagnosis:
[2016-10-14] MEDS ORDERED: D5/0.45NS 1,000 ML IV SCH (13:00)
[2016-10-14] MEDS ORDERED: ADRENALIN ONE (14:29)
== END 2016-10-14 16:30 | DRG 871 ==
LOC: ED 19:00 → 3A 23:01 → CC1 10-13 05:31
PROVIDERS: ADMIT Internal Medicine; ATTEND Internal Medicine
PROC: 4A033R1 Measurement of Arterial Saturation, Peripheral, Percutaneous Approach (ICD-10-PCS; principal; 2016-10-13)
PROC: 4A033R1 Measurement of Arterial Saturation, Peripheral, Percutaneous Approach (ICD-10-PCS; 2016-10-14)
PROC: 0BH17EZ Insertion of Endotracheal Airway into Trachea, Via Natural or Artificial Opening (ICD-10-PCS; 2016-10-14)
PROC: 5A12012 Performance of Cardiac Output, Single, Manual (ICD-10-PCS; 2016-10-14)
DX: A41.9 Sepsis, unspecified organism (principal); N17.0 Acute kidney failure with tubular necrosis; J96.01 Acute respiratory failure with hypoxia; G93.41 Metabolic encephalopathy; J18.9 Pneumonia, unspecified organism; R65.21 Severe sepsis with septic shock; N39.0 Urinary tract infection, site not specified; E87.0 Hyperosmolality and hypernatremia; D68.9 Coagulation defect, unspecified; I69.951 Hemiplegia and hemiparesis following unspecified cerebrovascular disease affecting right dominant side; B96.5 Pseudomonas (aeruginosa) (mallei) (pseudomallei) as the cause of diseases classified elsewhere; E86.9 Volume depletion, unspecified; I12.9 Hypertensive chronic kidney disease with stage 1 through stage 4 chronic kidney disease, or unspecified chronic kidney disease; E11.22 Type 2 diabetes mellitus with diabetic chronic kidney disease; N18.3 Chronic kidney disease, stage 3 (moderate); I25.10 Atherosclerotic heart disease of native coronary artery without angina pectoris; E78.5 Hyperlipidemia, unspecified; D63.1 Anemia in chronic kidney disease; E86.0 Dehydration; E87.5 Hyperkalemia; D69.6 Thrombocytopenia, unspecified; I46.9 Cardiac arrest, cause unspecified; Z88.8 Allergy status to other drugs, medicaments and biological substances; Z74.01 Bed confinement status; Z90.49 Acquired absence of other specified parts of digestive tract; Z98.891 History of uterine scar from previous surgery; Z90.710 Acquired absence of both cervix and uterus
CPT/HCPCS: 36415; 36600; 70450; 71010; 74000; 80048; 80053; 80061; 81001; 82140; 82550; 82553; 82803; 82962; 84484; 85025; 85610; 87040; 87076; 87086; 87186; 93005; 93010; 94760; 96361; 96374; 99291; J0171; J2543; J3370; J3430; J7030; J7040; J7070